=== PATIENT | female | born 1990 | race Two or more races ===

== ENCOUNTER 2024-09-30 12:50 | Inpatient (IN) | payer MEDICAID, OTHER ==
[~2024-09-30] VITALS: Ht 157.5 cm; Wt 89.5 kg
[2024-09-30 14:35] LABS: Urine Bacteria None Seen /hpf (None Seen)
--- NOTE | 2024-09-30 14:38 | ED.PDOC ---
Back pain HPI HPI Comments 34 y/o F, with no prior medical history presents to the ED for CC of back pain. Patient states, that she has been experiencing symptoms of acid reflex xdays with associated symptoms of back pain and supra pubic abdominal pain onset, today (09/30/24). Patient reports, that she had a gastric bypass surgery x1year ago and has since, developed symptoms of acid reflex. Patient denies flank pain, dysuria, diarrhea, or fever. No other symptoms or modifying factors present at this time. 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 Family History Family History: Unknown Social History Smoker: Non-Smoker Alcohol: Denies ETOH Use Drugs: Denies Drug Use Lives In: Home Constitutional: denies: chills, diaphoresis, fatigue, fever, malaise, sweats, weakness, others EENTM: denies: blurred vision, double vision, ear bleeding, ear discharge, ear drainage, ear pain, ear ringing, eye pain, eye redness, hearing loss, mouth pain, mouth swelling, nasal discharge, nose bleeding, nose congestion, nose pa in, photophobia, tearing, throat pain, throat swelling, voice changes, others Respiratory: denies: cough, hemoptysis, orthopnea, SOB at rest, shortness of breath, SOB with excertion, stridor, wheezing, others Cardiovascular: denies: chest pain, dizzy spells, diaphoresis, Dyspnea on exertion, edema, irregular heart beat, left arm pain, lightheadedness, palpitations, PND, syncope, others Gastrointestinal: reports: abdominal pain; denies: abdomen distended, blood streaked bowels, constipated, diarrhea, dysphagia, difficulty swallowing, hematemesis, melena, nausea, poor appetite, poor fluid intake, rectal bleeding, rectal pain, vomiting, others Genitourinary: denies: abnormal vagina bleeding, burning, dyspareunia, dysuria, flank pain, frequency, hematuria, incontinence, pain, , vagina discharge, urgency, others Neurological: denies: dizziness, fainting, headache, left sided numbness, left sided weakness, numbness, paresthesia, pre-existing deficit, right sided numbness, right sided weakness, seizure, speech problems, tingling, tremors, weakness, others Musculoskeletal: reports: back pain; denies: gout, joint pain, joint swelling, muscle pain, muscle stiffness, neck pain, others Integumetry: denies: bruises, change in color, change in hair/nails, dryness, laceration, lesions, lumps, rash, wounds, others Allergic/Immunocompromised: denies: Difficulty Healing, Frequent Infections, Hives, Itching, others Hematologic/Lymphatic: denies: anemia, blood clots, easy bleeding, easy bruising, swollen glands, others Endocrine: denies: excessive hunger, excessive sweating, excessive thirst, excessive urination, flushing, intolerance to cold, intolerance to heat, unexplained weight gain, unexplained weight loss, others Psychiatric: denies: anxiety, bipolar disorder, depression, hopeless, panic disorder, schizophrenia, sleepless, suicidal, others All Other Systems: Reviewed and Negative Physical Exam General Appearance: No Apparent Distress, Normal HEENT: Normal ENT Inspection, Pharynx Normal, TMs Normal Neck: Full Range of Motion, Non-Tender, Normal, Normal Inspection Respiratory: Chest Non-Tender, Lungs Clear, No Accessory Muscle Use, No Respiratory Distress, Normal Breath Sounds Cardiovascular: No Edema, No Murmur, No Gallop, Normal Peripheral Pulses, Regular Rate/Rhythm Breast Exam: Deferred Gastrointestinal: No Organomegaly, Non Tender, No Pulsatile Mass, Normal Bowel Sounds, Soft Genitalia: Deferred Pelvic: Deferred Rectal: Deferred Extremities: No calf tenderness, Normal capillary refill, Normal inspection, Normal range of motion, Non-tender, No pedal edema Musculoskeletal : Apperance: Normal Neurologic: Alert, rock worker II-XII nml as Tested, No Motor Deficits, Normal Affect, Normal Mood, No Sensory Deficits Cerebellar Function: Normal Reflexes: Normal Skin: Dry, Normal Color, Warm Lymphatic: No Adenopathy Was a procedure done? Was a procedure done?: No Back Pain Differential Dx Differential Diagnosis: Musculoskeletal Pain, Other (GERD, ULCER) X-Ray, Labs, Meds, VS Vital Signs Date Time Temp Pulse Resp B/P (MAP) Pulse Ox O2 Delivery O2 Flow Rate FiO2 09/30/24 13:30 98.2 101 20 103/72 (82) 98 98.2 Lab Test 09/30/24 14:42 09/30/24 13:32 Range/Units White Blood Count 9.8 4.4-10.8 10^3/uL Red Blood Count 4.33 4.0-5.20 10^6/uL Hemoglobin 11.4 L 12.2-16.2 g/dL Hematocrit 34.2 L 36.0-46.0 % Mean Corpuscular Volume 79.0 L 80.0-100.0 fL Mean Corpuscular Hemoglobin 26.3 L 28.0-32.0 pg Mean Corpuscular Hemoglobin Concent 33.2 32.0-36.0 g/dL Red Cell Distribution Width 16.8 H 11.8-14.3 % Platelet Count 293 140-450 10^3/uL Mean Platelet Volume 8.1 6.9-10.8 fL Neutrophils (%) (Auto) 88.3 H 37.0-80.0 % Lymphocytes (%) (Auto) 5.5 L 10.0-50.0 % Monocytes (%) (Auto) 5.4 0.0-12.0 % Eosinophils (%) (Auto) 0.4 0.0-7.0 % Basophils (%) (Auto) 0.4 0.0-2.0 % Neutrophils # (Auto) 8.7 H 1.6-8.6 10 ^3/uL Lymphocytes # (Auto) 0.5 0.4-5.4 10 ^3/uL Monocytes # (Auto) 0.5 0-1.3 10 ^3/uL Eosinophils # (Auto) 0 0-0.8 10 ^3/uL Basophils # (Auto) 0 0-0.2 10 ^3/uL Nucleated Red Blood Cells 0.0 % Sodium Level 141 136-145 mmol/L Potassium Level 4.5 3.5-5.1 mmol/L Chloride Level 109 H 98-107 mmol/L Carbon Dioxide Level 24 20-31 mmol/L Anion Gap 8 5-15 Blood Urea Nitrogen 6 L 9-23 mg/dL Creatinine 0.65 0.550-1.02 mg/dL Glomerular Filtration Rate Calc 118 >90 mL/min BUN/Creatinine Ratio 9.2 L 10.0-20.0 Serum Glucose 90 74-106 mg/dL Calcium Level 8.9 8.7-10.4 mg/dL Total Bilirubin 0.7 0.2-1.0 mg/dL Aspartate Amino Transferase (AST) 70 H 13-40 U/L Alanine Aminotransferase (ALT) 29 7-40 U/L Alkaline Phosphatase 94 46-116 U/L Total Protein 7.1 5.7-8.2 g/dL Albumin 4.5 3.2-4.8 g/dL Lipase 24 12-53 U/L Urine Color Yellow Yellow Urine Clarity Turbid H Clear Urine pH 8.0 5.0-9.0 Urine Specific [place] 1.020 1.001-1.035 Urine Protein Trace H Negative Urine Ketones Trace Negative Urine Blood Negative Negative /uL Urine Nitrite Negative Negative Urine Bilirubin Negative Negative Urine Urobilinogen Normal Negative mg/dL Urine Leukocyte Esterase Trace Negative /uL Urine RBC 1 0 - 4 /hpf Urine Microscopic WBC 1 0-5 /HPF Urine Squamous Epithelial Cells Mod <5 /hpf Urine Bacteria None seen None Seen /hpf Urine Mucus Few None Seen Urine Yeast (Budding) Occasional None Seen /hpf Urine Sperm Present None Seen /hpf Urine Glucose Normal Normal mg/dL Urine Test Negative Negative [place] [id number] Ph: [phone] DIAGNOSTIC IMAGING Diagnostic Imaging Report : [id number] Signed PATIENT: JYOTI SANCHEZ ACCT: [id number] UNIT: [id number] : 1990 LOC: ER ROOM / BED: / AGE / SEX: 34 / F ADM STATUS: REG ER SERVICE [id number] ORDERING PHYSICIAN: QIAN ALEXANDER MD PROCEDURE(s): CXRP - CHEST PORTABLE REASON: epigastric pain ORDER NUMBER(s): [id number], ACCESSION NUMBER(s): [id number] CHEST RADIOGRAPH Indication: epigastric pain Technique: Single frontal view of the chest was obtained COMPARISON: None FINDINGS: Lines and Tubes: None Lungs: Clear Pleura: No effusion. No pneumothorax. Cardiomediastinal contours: Unremarkable Bones: Unremarkable IMPRESSION: No acute disease. ATED BY: PRASANNA GRAHAM MD DICTATED DATE/TIME: 09/30/24 154 SIGNED BY: PRASANAN GRAHAM MD SIGNED DATE/TIME: 09/30/24 154 CC: Time of 1ST Reevaluation: 15:00 Reevaluation 1ST: Unchanged Patient Education/Counseling: Diagnosis, Treatment Family Education/Counseling: Diagnosis, Treatment Departure 1 Departure Time of Disposition: 16:50 (Patient presenting with epigastric pain concerning for gastritis. We will patient's labs and x-ray are benign. We will discharge patient home with outpatient follow up) Impression: Primary Impression: Gastritis Qualified Codes: K29.70 - Gastritis, unspecified, without bleeding Disposition: HOME / SELF CARE / HOMELESS Condition: Stable Additional Instructions: You likely have gastritis. You can take [id number] omeprazole 20 mg daily for 2 weeks. You should avoid spicy food, chocolate, caffeine, alcohol, dairy, onions, tomatoes. You were referred to gastroenterology. Please call for an appointment. If your symptoms worsen or you have any other concerns please return to the emergency room. Discharged With: Self Critical Care Note Critical Care Time?: No Stability Stability form required: No Heart Score Heart Score: Heart Score Response (Comments) Value History N/A 0 EKG N/A 0 Age N/A 0 Risk Factors N/A 0 Troponin N/A 0 Total 0 I personally scribed for QIAN ALEXANDER MD ([email or web address]) on 09/30/24 at 14:38. Electronically submitted by Yanely Howell ([email or web address]). I personally scribed for QIAN ALEXANDER MD ([email or web address]) on 09/30/24 at 16:47. E lectronically submitted by Yanely Howell ([email or web address]). QIAN ALEXANDER MD September 30, 2024 14:38
[2024-09-30 14:43] LABS: Urine Blood Negative /uL (Negative); Urine Budding Yeast OCCASIONAL /hpf (None Seen); Urine Clarity Turbid (Clear); Urine Color Yellow (Yellow); Urine Mucus FEW (None Seen); Urine Protein, UAD TRACE (Negative); Urine Sperm PRESENT /hpf (None Seen); Urine Squamous Epithelial Cell MOD /hpf (<5); Urine Urobilinogen Normal (Negative); Urine WBC 1 /HPF (0-5)
[2024-09-30 15:12] LABS: Alanine Aminotransferase 29 U/L (7-40); Albumin 4.5 g/dL (3.2-4.8); Alkaline Phosphatase 94 U/L (46-116); Anion Gap 8 (5-15); BUN/Creatinine Ratio 9.2 (10.0-20.0); Bilirubin, Total 0.7 mg/dL (0.2-1.0); Calcium 8.9 mg/dL (8.7-10.4); Carbon Dioxide 24 mmol/L (20-31); Glucose 90 mg/dL (74-106); Lipase 24 U/L (12-53); Potassium 4.5 mmol/L (3.5-5.1); Sodium 141 mmol/L (136-145); Total Protein 7.1 g/dL (5.7-8.2)
[2024-09-30 15:13] LABS: Aspartate Aminotransferase 70 U/L (13-40); Blood Urea Nitrogen 6 mg/dL (9-23); Chloride 109 mmol/L (98-107)
[2024-09-30 15:14] LABS: Basophils # (auto) 0 10 ^3/uL (0-0.2); Basophils % (auto) 0.4 % (0.0-2.0); Eosinophils # (auto) 0 10 ^3/uL (0-0.8); Eosinophils % (auto) 0.4 % (0.0-7.0); Hematocrit 34.2 % (36.0-46.0); Hemoglobin 11.4 g/dL (12.2-16.2); Lymphocytes # (auto) 0.5 10 ^3/uL (0.4-5.4); Lymphocytes % (auto) 5.5 % (10.0-50.0); Mean Corpuscular Hemoglobin 26.3 pg (28.0-32.0); Mean Corpuscular Hgb Conc. 33.2 g/dL (32.0-36.0); Monocytes # (auto) 0.5 10 ^3/uL (0-1.3); Monocytes % (auto) 5.4 % (0.0-12.0); Neutrophils # (auto) 8.7 10 ^3/uL (1.6-8.6); Neutrophils % (auto) 88.3 % (37.0-80.0); Platelet Count (auto) 293 10^3/uL (140-450); Red Blood Cells 4.33 10^6/uL (4.0-5.20); Red Cell Distribution Width 16.8 % (11.8-14.3); White Blood Cell 9.8 10^3/uL (4.4-10.8)
--- NOTE | 2024-09-30 15:42 | DVH ---
CHEST RADIOGRAPH Indication: epigastric pain Technique: Single frontal view of the chest was obtained COMPARISON: None FINDINGS: Lines and Tubes: None Lungs: Clear Pleura: No effusion. No pneumothorax. Cardiomediastinal contours: Unremarkable Bones: Unremarkable IMPRESSION: No acute disease.
[2024-09-30] MEDS: ONDANSETRON HCL 4 MG/2 ML VIAL IV ONE (17:03)
[2024-09-30] MEDS: PANTOPRAZOLE 40 MG/10 ML VIAL INJ IV ONE (17:03)
[2024-09-30] MEDS: SODIUM CHLORIDE 0.9% 1,000 ML IV ONE (17:03)
--- NOTE | 2024-09-30 17:28 | ED.PDOC ---
Departure 1 Departure Time of Disposition: 17:27 (Patient presented with chest pain that was concerning for possible STEMI, ACS, PE, Pneumonia, Muscle Strain, COPD, Dissection. Data: 1. I ordered and reviewed the result of at least 3 labs including a CBC, BMP, and Troponin. 2. I independently interpreted the following tests: EKG which shows sinus tachycardia _ and Chest X-ray which shows benign chest.Risk:This patient has a high risk of morbidity due to further diagnostic testing or treatment and may suffer from an acute cardiac or respiratory disorder. Workup reveals concern for ACS and patient should be admitted for further workup and possible expert consultation. ) Impression: Primary Impression: Acute chest pain Disposition: ADMITTED INPATIENT Admit to: Med Surg Condition: Serious Discharged With: Self Critical Care Note Critical Care Time?: Yes Critical care comment: Acute chest pain Authorized and Performed by: Qian Carlisle MD Total critical care time: Approximately 38 minutes Due to a high probability of clinically significant, life threatening deterioration, the patient required my highest level of preparedness to intervene emergently and I personally spent this critical care time directly and personally managing the patient. This critical care time included obtaining a history; examining the patient; pulse oximetry; ordering and review of studies; arranging urgent treatment with development of a management plan; evaluation of patient's response to treatment; frequent reassessment; and, discussions with o ther providers. This critical care time was performed to assess and manage the high probability of imminent, life-threatening deterioration that could result in multi-organ failure. It was exclusive of separately billable procedures and treating other patients and teaching time. Please see my other sections and the rest of the note for further information on patient assessment and treatment. Heart Score Heart Score: Heart Score Response (Comments) Value History Moderate Suspicious 1 EKG Repolarization Disturb 1 Age <45 0 Risk Factors 1 or 2 risk factors 1 Troponin 1-2 x's Normal limit 1 Total 4 QIAN CARLISLE MD September 30, 2024 17:28
--- NOTE | 2024-09-30 17:36 | DVHHP2 ---
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 The symptoms began two days ago and significantly worsened around 10:00 AM today. She also reports chest wall discomfort described as pressure, without associated cough, fever, hematuria, melena, or dysuria. She denies any known inciting factors, and nothing improves or worsens the symptoms.In the ED, she received IV protonix, Zofran, and normal saline with partial relief. Laboratory evaluation showed hemoglobin 11.4 / hematocrit 34.2, AST mildly elevated at 70, but otherwise CBC, CMP, UA, and chest X-ray were unremarkable. Given persistent symptoms and abnormal LFTs, she will be admitted for further evaluation, IV hydration, and pain management. Past Medical History see hpi above Past Surgical History see hpi above Family History Reviewed, non-contributory to the management of this case. Past Social History The patient lives at home, denies smoking, alcohol or illicit drugs abuse. Review of Systems Constitutional: No: Fever, Chills, Sweats, Weakness, Malaise, Other Eyes: No: Pain, Vision change, Conjunctivae inflammation, Eyelid inflammation, Other, Redness ENT: No: Ear pain, Ear discharge, Nose pain, Nose discharge, Nose congestion, Mouth pain, Mouth swelling, Throat pain, Throat swelling, Other Respiratory: No: Cough, Dry, Shortness of breath, SOB with excertion, Wheezing, Hemoptysis, Pleuritic Pain, Sputum, Wheezing, Other Cardiovascular: No: Chest Pain, Palpitations, Orthopnea, Paroxysmal Noc. Dyspnea, Edema, Lt Headedness, Other Gastrointestinal: Abdominal Pain; No: Nausea, Vomiting, Diarrhea, Constipation, Melena, Hematochezia, Other Genitourinary: No Dysuria, No Frequency, No Incontinence, No Hematuria, No Retention, No Other Musculoskeletal: No: other, neck pain, shoulder pain, arm pain, back pain, hand pain, leg pain, foot pain Skin: No: Rash, Lesions, Jaundice, Bruising, Other Neurological: No: Weakness, Numbness, Incoordination, Change in speech, Confusion, Seizures, Other Allergies: Coded Allergies: Latex (Verified Allergy, Unknown, 09/30/24) Exam Vital Signs Vital Signs Date Time Temp Pulse Resp B/P (MAP) Pulse Ox O2 Delivery O2 Flow Rate FiO2 09/30/24 17:28 71 15 125/67 (86) 99 09/30/24 13:30 98.2 98.2 General Appearance: Alert, Oriented X3, Cooperative, No acute distress HEENT: Atraumatic, PERRLA, EOMI, Mucous membr. moist/pink Respiratory: Clear to auscultation, Normal air movement Cardiovascular: Regular rate, Normal S1, Normal S2, No murmurs Abdominal: Normal bowel sounds, Soft, No tenderness, No hepatospenomegaly Extremities: No clubbing, No cyanosis, No edema, Normal pulses, No tenderness/swelling Skin: No rashes, No breakdown, No significant lesion Neuro: Normal gait, Normal speech, Strength at 5/5 X4 ext, Normal tone, Sensation intact, Cranial nerves 3-12 NL Psych/Mental Status: Mental status NL, Mood NL Labs/Xrays I reviewed labs, imaging CT scan abdomen pelvis, EKG and all diagnostic studies on this patient from ED records and the medical chart cxr normal Labs Test 09/30/24 14:42 09/30/24 13:32 Range/Units White Blood Count 9.8 4.4-10.8 10^3/uL Red Blood Count 4.33 4.0-5.20 10^6/uL Hemoglobin 11.4 L 12.2-16.2 g/dL Hematocrit 34.2 L 36.0-46.0 % Mean Corpuscular Volume 79.0 L 80.0-100.0 fL Mean Corpuscular Hemoglobin 26.3 L 28.0-32.0 pg Mean Corpuscular Hemoglobin Concent 33.2 32.0-36.0 g/dL Red Cell Distribution Width 16.8 H 11.8-14.3 % Platelet Count 293 140-450 10^3/uL Mean Platelet Volume 8.1 6.9-10.8 fL Neutrophils (%) (Auto) 88.3 H 37.0-80.0 % Lymphocytes (%) (Auto) 5.5 L 10.0-50.0 % Monocytes (%) (Auto) 5.4 0.0-12.0 % Eosinophils (%) (Auto) 0.4 0.0-7.0 % Basophils (%) (Auto) 0.4 0.0-2.0 % Neutrophils # (Auto) 8.7 H 1.6-8.6 10 ^3/uL Lymphocytes # (Auto) 0.5 0.4-5.4 10 ^3/uL Monocytes # (Auto) 0.5 0-1.3 10 ^3/uL Eosinophils # (Auto) 0 0-0.8 10 ^3/uL Basophils # (Auto) 0 0-0.2 10 ^3/uL Nucleated Red Blood Cells 0.0 % Sodium Level 141 136-145 mmol/L Potassium Level 4.5 3.5-5.1 mmol/L Chloride Level 109 H 98-107 mmol/L Carbon Dioxide Level 24 20-31 mmol/L Anion Gap 8 5-15 Blood Urea Nitrogen 6 L 9-23 mg/dL Creatinine 0.65 0.550-1.02 mg/dL Glomerular Filtration Rate Calc 118 >90 mL/min BUN/Creatinine Ratio 9.2 L 10.0-20.0 Serum Glucose 90 74-106 mg/dL Calcium Level 8.9 8.7-10.4 mg/dL Total Bilirubin 0.7 0.2-1.0 mg/dL Aspartate Amino Transferase (AST) 70 H 13-40 U/L Alanine Aminotransferase (ALT) 29 7-40 U/L Alkaline Phosphatase 94 46-116 U/L Total Protein 7.1 5.7-8.2 g/dL Albumin 4.5 3.2-4.8 g/dL Lipase 24 12-53 U/L Urine Color Yellow Yellow Urine Clarity Turbid H Clear Urine pH 8.0 5.0-9.0 Urine Specific [place] 1.020 1.001-1.035 Urine Protein Trace H Negative Urine Ketones Trace Negative Urine Blood Negative Negative /uL Urine Nitrite Negative Negative Urine Bilirubin Negative Negative Urine Urobilinogen Normal Negative mg/dL Urine Leukocyte Esterase Trace Negative /uL Urine RBC 1 0 - 4 /hpf Urine Microscopic WBC 1 0-5 /HPF Urine Squamous Epithelial Cells Mod <5 /hpf Urine Bacteria None seen None Seen /hpf Urine Mucus Few None Seen Urine Yeast (Budding) Occasional None Seen /hpf Urine Sperm Present None Seen /hpf Urine Glucose Normal Normal mg/dL Urine Test Negative Negative Assessment/Plan Assessment/Plan 34-year-old female with prior bariatric surgery and recent-onset abdominal and chest wall pain, likely musculoskeletal vs. mild gastritis vs. functional abdominal pain. acute Abdominal Pain Crampy pain across lower abdomen and back No focal peritoneal signs Imaging and labs unremarkable except for mild AST elevation Plan: Admit to surgical obs unit for monitoring IV fluids at 75 mL/hr Continue IV pain control GI prophylaxis with protonix Abdominal exam q4h Monitor for changes or progression Consider abdominal ultrasound if symptoms persist acute Chest Wall Pain (Non-cardiac chest pain) Described as pressure-like No respiratory or cardiac symptoms Chest X-ray normal, no history of CAD Plan: Likely musculoskeletal or referred from abdominal discomfort Monitor vitals and reassess Continue supportive care acute Dehydration Ongoing nausea, mild hemoconcentration Plan: Continue IV fluids Monitor electrolytes Advance diet as tolerated FEN / PROPHYLAXIS (PPx) Fluids/Electrolytes/Nutrition IV NS at 75 mL/hr Clear liquid diet, advance as tolerated DVT Prophylaxis SCDs/No pharmacologic prophylaxis unless prolonged immobility GI Prophylaxis Pantoprazole 40 mg IV daily DISPOSITION Admit to surgical obs unit for IV hydration, pain control, and continued evalu ation of abdominal and chest wall discomfort. Monitor LFTs and reassess for further diagnostic imaging based on progression. Plan discussed with: Patient Date of Service: September 30, 2024 Billing Provider: MAIK BRIZUELA DNP Common Visit Codes: [id number] INP/OBS CARE (HIGH) MAIK BRIZUELA DNP September 30, 2024 17:36
[2024-09-30] MEDS: HYDROcodone-ACET 5/325MG TAB PO ONE (18:04)
[2024-09-30] MEDS: SODIUM CHLORIDE 0.9% 1,000 ML IV SCH (18:30)
[2024-09-30] MEDS ORDERED: ONDANSETRON HCL 4 MG/2 ML VIAL IV PRN (18:30)
[2024-09-30] MEDS ORDERED: DOCUSATE SOD 100 MG CAP PO PRN (18:30)
[2024-09-30] MEDS ORDERED: NITROGLYCERIN 0.4 MG SL TAB SL PRN (18:30)
--- NOTE | 2024-09-30 19:35 | DVH ---
Exam: CT CT AB PEL WO CON-NO ORAL OR IV History: eval for abd pain and lower back Comparison Study: NoneNone available at time of dictation. TECHNIQUE: Multidetector CT of the abdomen and pelvis without IV contrast. Axial, coronal and sagitta l multiplanar reformats were obtained from the axial data set by the technologist. Radiation Dose Information: CT Dose: CTDI volume is 16.83 mGy. Dose-length product is 869.82 mGy*cm FINDINGS: The lung bases are clear. Partially visualized heart is normal in size. Trace pericardial effusion. Mild hepatomegaly. Otherwise, liver, spleen, and adrenal glands are unremarkable. Sludge within the gallbladder. There is fat stranding adjacent to the pancreatic head. Kidneys, ureters and urinary bladder are unremarkable. Uterus and adnexa are unremarkable. Postsurgical changes of the stomach. Small bowel loops are unremarkable. Appendix is unremarkable. M ild wall thickening of the ascending colon. Small to moderate amount of fecal material within the rem ainder of the colon. No evidence of intraperitoneal free air or free fluid. No evidence of aortic aneurysm. No significant lymphadenopathy. Minimal body wall edema. No destructive osseous lesions are noted. Sclerotic focus over the right fem oral head and right sacral ala which may represent bone islands with blastic lesions not excluded. No destructive osseous lesions are noted. IMPRESSION: Mild fat stranding adjacent to the pancreatic head. Recommend correlation with lipase.Mild wall thic kening of the ascending colon. Correlate for mild colitis. Sludge within the gallbladder with no CT evidence for acute cholecystitis.
[2024-09-30 20:53] VITALS: PULSE 86; RESP 19; O2SAT 97
[2024-09-30 21:46] VITALS: BP 119/79; PULSE 91; RESP 19; TEMP 97.5; O2SAT 100
[2024-09-30] MEDS ORDERED: HYDR1TAB97 PO (21:53)
[2024-09-30] MEDS ORDERED: LIDO1PAD55 TOP (21:53)
[2024-09-30] MEDS ORDERED: LIDO1KIT21 (21:53)
[2024-09-30] MEDS ORDERED: TIRZ5INJ2 SC (21:54)
[2024-09-30] MEDS ORDERED: TRIO1TP TOP (22:05)
[2024-09-30] MEDS ORDERED: NYS15PW TOP (22:06)
[2024-09-30] MEDS: DICYCLOMINE HCL 10 MG CAP PO SCH (22:18)
[2024-09-30 23:12] VITALS: PULSE 91; RESP 19; O2SAT 100
[2024-10-01] VITALS (7 sets, daily range): BP systolic 90–136; BP diastolic 60–76; PULSE 58–73; RESP 16–20; TEMP 97.1–98; O2SAT 95–100
[2024-10-01] MEDS: MORPHINE SULFATE INJ 2 MG/ml SYRG IV PRN (00:01)
[2024-10-01] MEDS: SODIUM CHLORIDE 0.9% 500 ML IV ONE (00:01)
[2024-10-01 07:44] LABS: Basophils # (auto) 0 10 ^3/uL (0-0.2); Eosinophils # (auto) 0.2 10 ^3/uL (0-0.8); Hemoglobin 9.8 g/dL (12.2-16.2); Lymphocytes # (auto) 1.2 10 ^3/uL (0.4-5.4); Monocytes # (auto) 0.4 10 ^3/uL (0-1.3); Red Cell Distribution Width 16.8 % (11.8-14.3); White Blood Cell 4.2 10^3/uL (4.4-10.8)
[2024-10-01 07:47] LABS: Basophils % (auto) 0.7 % (0.0-2.0); Hematocrit 30.2 % (36.0-46.0); Lymphocytes % (auto) 28.8 % (10.0-50.0); Mean Corpuscular Hemoglobin 25.9 pg (28.0-32.0); Mean Corpuscular Hgb Conc. 32.6 g/dL (32.0-36.0); Mean Corpuscular Volume 79.3 fL (80.0-100.0); Monocytes % (auto) 8.4 % (0.0-12.0); Neutrophils # (auto) 2.4 10 ^3/uL (1.6-8.6); Neutrophils % (auto) 58.1 % (37.0-80.0); Nucleated Red Blood Cells % 0.1 %; Platelet Count (auto) 248 10^3/uL (140-450)
[2024-10-01 07:56] LABS: Anion Gap 5 (5-15); BUN/Creatinine Ratio 10.3 (10.0-20.0); Carbon Dioxide 28 mmol/L (20-31); Glucose 87 mg/dL (74-106); Potassium 4.4 mmol/L (3.5-5.1); Sodium 142 mmol/L (136-145); Total Protein 5.9 g/dL (5.7-8.2)
[2024-10-01 07:57] LABS: Albumin 3.8 g/dL (3.2-4.8)
[2024-10-01 08:07] LABS: Alanine Aminotransferase 52 U/L (7-40); Alkaline Phosphatase 116 U/L (46-116); Aspartate Aminotransferase 68 U/L (13-40); Blood Urea Nitrogen 7 mg/dL (9-23); Calcium 8.7 mg/dL (8.7-10.4); Chloride 109 mmol/L (98-107)
[2024-10-01 11:34] LABS: Triglycerides 68 mg/dL (< 150)
[2024-10-01 11:35] LABS: % Iron Saturation 15.7 % (15-50); LDL Cholesterol 33 mg/dL (< 100)
[2024-10-01 11:36] LABS: Cholesterol 105 mg/dL (< 200); HDL Cholesterol 54 mg/dL (40-59)
[2024-10-01] MEDS: PANTOPRAZOLE 40 MG TAB PO ONE (11:41)
[2024-10-01] MEDS: LACTATED RINGER'S 1,000 ML IV ONE (11:42)
--- NOTE | 2024-10-01 18:11 | DVHPNRES ---
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 The symptoms began two days ago and significantly worsened around 10:00 AM today. She also reports chest wall discomfort described as pressure, without associated cough, fever, hematuria, melena, or dysuria. She denies any known inciting factors, and nothing improves or worsens the symptoms. Past medical history: Obesity status post gastric sleeve surgery 1 year ago Past surgical history: Gastric sleeve surgery, Social history: Patient was with family and denies smoking, alcohol, drug use Medications: Lidocaine patch, tirzepatide weekly Review of systems Patient seen and examined at the bedside Reports her abdominal pain has improved but she will complains of back pain Denies fecal or urinary incontinence, no radiation of back pain into the legs, no trauma to the back Denies nausea, vomiting and is tolerating clear liquid diet well Objective vital signs Vital Sign Date Time Temp Pulse Resp B/P (MAP) Pulse Ox O2 Delivery O2 Flow Rate FiO2 10/01/24 17:15 98.0 68 20 104/61 (75) 97 98.0 10/01/24 08:00 Room Air* 0 21 Total Intake and Output 09/30/24 09/30/24 10/01/24 15:00 23:00 07:00 Intake Total 340 ml Balance 340 ml medications Current Medications Medications Dose Ordered Sig/Janny Route Start Time Stop Time Status Last Admin Dose Admin Ondansetron HCl 4 mg Q4HP PRN IV 09/30/24 18:30 Morphine Sulfate 2 mg Q4HPRN PRN IV 09/30/24 18:30 10/01/24 15:48 2 MG Pantoprazole Sodium 40 mg DAILY@0600 PO 10/02/24 06:00 Examination Constitutional: Patient was alert and oriented to time, place and person does not appear to be in any acute distress Gen - no pallor, no icterus, no cyanosis, no clubbing, no LAD, no edema . Skin - Patients skin is warm and dry.. HEENT - normocephalic, atraumatic, moist mucous membranes. Neck - full ROM, no LAD, no JVD Pulmonary - B/L vesicular breath sounds. no crackles , no wheezing, no stridor. cardiovascular - normal S1,S2 heard. no murmurs heard. GI - soft abdomen with tenderness to palpation in the epigastrium in the upper quadrants . no hepatospleenomegaly. Bowel sounds normoactive Musculoskeletal: Straight leg raise negative, no midline back tenderness Neurological - Patient is A/O X 3 . Bilateral upper extremity strength 5/5, bilateral lower extremity strength 5/5, no facial droop, normal speech, no tremor, no sensory deficiets. laboratory and microbiology Laboratory Tests 10/01/24 06:45 Test 10/01/24 06:45 Range/Units Serum Glucose 87 74-106 mg/dL Problem List/Assessment/Plan Problem List/Assessment/Plan Acute intractable abdominal pain Possible acute pancreatitis possibly drug induced ? Acute gastritis Acute cholecystitis less likely - CT shows fat stranding along the head of the pancreas - epigastric abdominal pain radiating to the back - IV fluids - tolerating clear liquid diet - pain management with morphine - Protonix Acute on chronic lower back pain - pain management Microcytic hypochromic anemia likely iron-deficiency S/p gastric sleeve surgery - low ferritin and iron - monitor CBC PUD prophylaxis: Protonix Goals of care discussed with the patient for over 23 minutes. Full code Plan discussed with Dr. Serna Plan discussed with: Patient, Other My Orders My Orders Orders - GLENIS HOPPER Procedure Category Date Status Time Lactated Ringer's PHA 10/01/24 In Process 11:15 Pantoprazole Tablet PHA 10/02/24 In Process (Protonix Tablet) 06:00 Date of Service: October 01, 2024 Billing Provider: TALAT SERNA MD Common Visit Codes: [id number] INP/OBS CARE(HIGH) GLENIS HOPPER RESIDENT October 01, 2024 18:11 TALAT SERNA MD October 04, 2024 15:28
[2024-10-01 21:23] LABS: Urine Amorphous Crystal FEW /hpf (None Seen); Urine Bacteria FEW /hpf (None Seen); Urine Blood Negative /uL (Negative); Urine Clarity Turbid (Clear); Urine Color Colorless (Yellow); Urine Protein, UAD Negative (Negative); Urine Specific Gravity 1.003 (1.001-1.035); Urine Squamous Epithelial Cell FEW /hpf (<5); Urine Urobilinogen Normal (Negative); Urine WBC 1 /HPF (0-5); Urine pH 5.5 (5.0-9.0)
[2024-10-01] MEDS: CLOTRIMAZOLE 1 % CREAM 15GM TOP SCH (23:52)
[2024-10-02] VITALS (8 sets, daily range): BP systolic 96–135; BP diastolic 64–81; PULSE 62–86; RESP 16–20; TEMP 97.7–98.6; O2SAT 96–100
[2024-10-02 05:50] LABS: Basophils # (auto) 0 10 ^3/uL (0-0.2); Basophils % (auto) 0.6 % (0.0-2.0); Eosinophils # (auto) 0.1 10 ^3/uL (0-0.8); Hemoglobin 9.4 g/dL (12.2-16.2); Lymphocytes # (auto) 1.5 10 ^3/uL (0.4-5.4); Monocytes # (auto) 0.4 10 ^3/uL (0-1.3)
[2024-10-02 05:52] LABS: Eosinophils % (auto) 3.1 % (0.0-7.0); Hematocrit 28.9 % (36.0-46.0); Lymphocytes % (auto) 33.7 % (10.0-50.0); Mean Corpuscular Hemoglobin 25.8 pg (28.0-32.0); Mean Corpuscular Hgb Conc. 32.5 g/dL (32.0-36.0); Mean Corpuscular Volume 79.3 fL (80.0-100.0); Monocytes % (auto) 9.2 % (0.0-12.0); Neutrophils # (auto) 2.4 10 ^3/uL (1.6-8.6); Neutrophils % (auto) 53.4 % (37.0-80.0); Platelet Count (auto) 236 10^3/uL (140-450); Red Blood Cells 3.65 10^6/uL (4.0-5.20); Red Cell Distribution Width 16.9 % (11.8-14.3); White Blood Cell 4.4 10^3/uL (4.4-10.8)
[2024-10-02 05:53] LABS: Anion Gap 7 (5-15); Carbon Dioxide 29 mmol/L (20-31); Chloride 106 mmol/L (98-107); Sodium 142 mmol/L (136-145)
[2024-10-02 05:55] LABS: Calcium 9.3 mg/dL (8.7-10.4)
[2024-10-02 05:59] LABS: BUN/Creatinine Ratio 6.7 (10.0-20.0)
[2024-10-02] MEDS: PANTOPRAZOLE 40 MG TAB PO SCH (06:22)
[2024-10-02 06:32] LABS: Blood Urea Nitrogen 5 mg/dL (9-23); Glucose 107 mg/dL (74-106)
[2024-10-02] MEDS: CYANOCOBALAMIN (B-12) 1000 MCG/1 ML VIAL IM ONE (08:52)
--- NOTE | 2024-10-02 11:16 | DVH ---
EXAM: CT THORACIC SPINE WO CONTRAS INDICATION: back pain COMPARISON: None TECHNIQUE: Multiple axial CT images of the thoracic spine were obtained using bone algorithm. Axial and coronal reformatting was done. Bone and soft tissue windows were reviewed. Radiation Dose Information: CT Dose: CTDI volume is 28.62 mGy. Dose-length product is 1074.69 mGy*cm FINDINGS: No CT evidence of acute fracture or traumatic mal-alignment. The visualized paraspinal soft tissues a re grossly unremarkable. The disc spaces are relatively preserved. There is multilevel degenerative change of the spine, with disc space narrowing, subchondral sclerosis, and marginal osteophyte formation. IMPRESSION: No CT evidence of acute fracture or traumatic mal-alignment of the bony thoracic spine. Radiation optimization: All CT scans at this facility use at least one of these dose optimization amber hniques: automated exposure control mA and/or kV adjustment per patient size (includes targeted exam s where dose is matched to clinical indication) or iterative reconstruction.
--- NOTE | 2024-10-02 12:22 | DVH ---
Indication: mid to low Back pain Technique: CT axial images of the lumbar spine are obtained without contrast. Coronal and sagittal re formats were obtained. Radiation Dose Information: CTDI volume is 32.7 mGy. Dose-length product is 1220.04 mGy*cm Comparison: None FINDINGS: Lumbar vertebral body heights are maintained. Alignment maintained. Mild multilevel disc space narr owing. Facet articulations intact. Mild bilateral sacroiliac degenerative joint disease. Tiny bilateral pleural effusions. Postsurgical changes stomach. IMPRESSION: 1. Mild lumbar degenerative disc disease. 2. Tiny bilateral pleural effusions.
[2024-10-02] MEDS: MORPHINE SULFATE INJ 2 MG/ml SYRG IV ONE (16:16)
[2024-10-02 16:34] LABS: Basophils # (auto) 0 10 ^3/uL (0-0.2); Eosinophils # (auto) 0 10 ^3/uL (0-0.8); Eosinophils % (auto) 1.1 % (0.0-7.0); Hemoglobin 10.4 g/dL (12.2-16.2); Lymphocytes # (auto) 0.8 10 ^3/uL (0.4-5.4); Lymphocytes % (auto) 17.6 % (10.0-50.0); Monocytes # (auto) 0.3 10 ^3/uL (0-1.3); Monocytes % (auto) 6.5 % (0.0-12.0); Neutrophils # (auto) 3.3 10 ^3/uL (1.6-8.6); White Blood Cell 4.4 10^3/uL (4.4-10.8)
[2024-10-02 16:36] LABS: Basophils % (auto) 0.6 % (0.0-2.0); Hematocrit 31.9 % (36.0-46.0); Mean Corpuscular Hemoglobin 25.8 pg (28.0-32.0); Mean Corpuscular Hgb Conc. 32.5 g/dL (32.0-36.0); Mean Corpuscular Volume 79.5 fL (80.0-100.0); Neutrophils % (auto) 74.2 % (37.0-80.0); Platelet Count (auto) 299 10^3/uL (140-450); Red Blood Cells 4.01 10^6/uL (4.0-5.20); Red Cell Distribution Width 16.5 % (11.8-14.3)
[2024-10-02 16:44] LABS: Potassium 4.9 mmol/L (3.5-5.1); Sodium 143 mmol/L (136-145)
[2024-10-02 16:45] LABS: Anion Gap 7 (5-15); Calcium 9.7 mg/dL (8.7-10.4); Carbon Dioxide 29 mmol/L (20-31)
[2024-10-02 16:52] LABS: Chloride 107 mmol/L (98-107); Glucose 111 mg/dL (74-106)
[2024-10-02 16:53] LABS: Blood Urea Nitrogen 9 mg/dL (9-23)
[2024-10-02] MEDS: POLYETHYLENE GLYCOL 17 GM PWDR PO ONE ×2 (17:37→21:58)
--- NOTE | 2024-10-02 17:57 | DVHPNRES ---
Progress Note Date Seen: October 02, 2024 Resident Creating Document: GLENIS HOPPER RESIDENT Medical Necessity Reason Pt with a Central, PICC or Fol: No Subjective Review of Systems Patient seen and examined at the bedside Reports her abdominal pain has improved but and the diet was advanced to regular patient had pain after eating, changed to full liquid diet for the dinner Patient continued to have back pain following which a lumbar and thoracic spine CT was done Denies nausea, vomiting Objective vital signs Vital Sign Date Time Temp Pulse Resp B/P (MAP) Pulse Ox O2 Delivery O2 Flow Rate FiO2 10/02/24 17:00 98.4 78 17 117/75 (89) 100 98.4 10/02/24 08:00 Room Air* 0 21 Total Intake and Output 10/01/24 10/01/24 10/02/24 15:00 23:00 07:00 Intake Total 2450 ml 1200 ml Balance 2450 ml 1200 ml medications Current Medications Medications Dose Ordered Sig/Janny Route Start Time Stop Time Status Last Admin Dose Admin Ondansetron HCl 4 mg Q4HP PRN IV 09/30/24 18:30 Morphine Sulfate 2 mg Q4HPRN PRN IV 09/30/24 18:30 10/02/24 15:09 2 MG Pantoprazole Sodium 40 mg DAILY@0600 PO 10/02/24 06:00 10/02/24 06:22 40 MG Clotrimazole 1 applic Q12HR TOP 10/01/24 23:30 10/02/24 10:28 1 APPLIC Examination Constitutional: Patient was alert and oriented to time, place and person does not appear to be in any acute distress Gen - no pallor, no icterus, no cyanosis, no clubbing, no LAD, no edema . Skin - Patients skin is warm and dry.. HEENT - normocephalic, atraumatic, moist mucous membranes. Neck - full ROM, no LAD, no JVD Pulmonary - B/L vesicular breath sounds. no crackles , no wheezing, no stridor. cardiovascular - normal S1,S2 heard. no murmurs heard. GI - soft abdomen with tenderness to palpation in the epigastrium in the upper quadrants . no hepatospleenomegaly. Bowel sounds normoactive Musculoskeletal: Straight leg raise negative, no midline back tenderness Neurological - Patient is A/O X 3 . Bilateral upper extremity strength 5/5, bilateral lower extremity strength 5/5, no facial droop, normal speech, no tremor, no sensory deficiets. laboratory and microbiology Laboratory Tests 10/02/24 16:10 Test 10/02/24 16:10 Range/Units Serum Glucose 111 H 74-106 mg/dL Problem List/Assessment/Plan Problem List/Assessment/Plan Acute intractable abdominal pain Possible acute pancreatitis possibly drug induced ? Acute gastritis Acute cholecystitis less likely - CT shows fat stranding along the head of the pancreas - IV fluids - tolerating full liquid diet - pain management with morphine - Protonix Acute on chronic lower back pain - thoracic spine CT showed no evidence of fracture or traumatic malalignment - lumbar spine CT showed mild lumbar degenerative disc disease - pain management Microcytic hypochromic anemia likely iron-deficiency S/p gastric sleeve surgery - low ferritin and iron - monitor CBC - reported of constipation, not started on ferrous sulfate PUD prophylaxis: Protonix Goals of care discussed with the patient for over 26 minutes. Full code Plan discussed with Dr. Serna Plan discussed with: Patient My Orders My Orders Orders - GLENIS HOPPER RESIDENT Procedure Category Date Status Time Ls Spine Wo Contrast CT 10/02/24 Resulted 09:[address] 10/02/24 Resulted Contras 09:29 Full Liq Diet DIET 10/02/24 Transmitted Dinner Dietary Evaluation Review Comments: 1. Continue Regular diet as tolerated 2. Recommend small/frequent meals to meet energy needs 3. Given hx of gastric sleeve, recommend standard daily MVI (bariatric version not available at [facility]), ferrous sulfate 200 mg daily, calcium citrate 600 mg BID, Vit D 3000 IU daily, B12 350 mcg daily 4. Monitor GI sx, appears to have improved Expected Outcomes/Goals: Adequate energy/micronutrient intake given hx of gastric sleeve. Date of Service: October 02, 2024 Billing Provider: TALAT SERNA MD Common Visit Codes: [id number] INP/OBS CARE(HIGH) GLENIS HOPPER RESIDENT October 02, 2024 17:57 TALAT SERNA MD October 04, 2024 15:40
[2024-10-02] MEDS: HYDROcodone-ACET 5/325MG TAB PO ONE (21:58)
[2024-10-03] VITALS (8 sets, daily range): BP systolic 101–125; BP diastolic 51–77; PULSE 65–80; RESP 17–18; TEMP 97.9–98.6; O2SAT 94–100
[2024-10-03 05:36] LABS: Eosinophils # (auto) 0.1 10 ^3/uL (0-0.8); Eosinophils % (auto) 0.9 % (0.0-7.0); Lymphocytes # (auto) 1.3 10 ^3/uL (0.4-5.4); Mean Corpuscular Hgb Conc. 32.6 g/dL (32.0-36.0); White Blood Cell 6.2 10^3/uL (4.4-10.8)
[2024-10-03 05:40] LABS: Basophils # (auto) 0 10 ^3/uL (0-0.2); Basophils % (auto) 0.7 % (0.0-2.0); Hemoglobin 9.8 g/dL (12.2-16.2); Lymphocytes % (auto) 20.7 % (10.0-50.0); Mean Corpuscular Hemoglobin 26.3 pg (28.0-32.0); Mean Corpuscular Volume 80.5 fL (80.0-100.0); Monocytes # (auto) 0.5 10 ^3/uL (0-1.3); Monocytes % (auto) 7.9 % (0.0-12.0); Neutrophils # (auto) 4.4 10 ^3/uL (1.6-8.6); Neutrophils % (auto) 69.8 % (37.0-80.0); Nucleated Red Blood Cells % 0.1 %; Platelet Count (auto) 252 10^3/uL (140-450); Red Blood Cells 3.72 10^6/uL (4.0-5.20); Red Cell Distribution Width 17.1 % (11.8-14.3)
[2024-10-03 05:59] LABS: Anion Gap 7 (5-15); Carbon Dioxide 27 mmol/L (20-31); Chloride 106 mmol/L (98-107); Potassium 4.4 mmol/L (3.5-5.1); Sodium 140 mmol/L (136-145)
[2024-10-03 06:05] LABS: BUN/Creatinine Ratio 10.1 (10.0-20.0); Glucose 99 mg/dL (74-106)
[2024-10-03 06:15] LABS: Blood Urea Nitrogen 7 mg/dL (9-23); Calcium 8.6 mg/dL (8.7-10.4)
[2024-10-03] MEDS: SENNA 8.6 MG TAB PO ONE (09:00)
[2024-10-03] MEDS: POLYETHYLENE GLYCOL 17 GM PWDR PO ONE (09:00)
[2024-10-03] MEDS: METOCLOPRAMIDE HCL 5MG/ml INJ 2ml VIAL IV ONE (17:15)
--- NOTE | 2024-10-03 17:30 | DVHPN2 ---
Subjective 10/[address] young. 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 Patient was weak pain complaints paraspinal and pinpoint spinal. But no red flag symptoms. Bowel sounds present, cardiovascular lung exam without any significant findings. Patient is hyper focused on ureaplasma, which was apparently treated prior by gabi by PCP. Currently we will focus on constipation and we will send cultures for ureaplasma, GC, and trial baclofen muscle relaxant, repeat UA U culture,, possible PID? . Reviewed: H&P Changes from previous H/P or p: No Changes General: Per HPI Eyes: No Pain, No Vision change, No Conjunctivae inflammation, No Eyelid inflammation, No Other, No Redness ENT: No Ear pain, No Ear discharge, No Nose pain, No Nose discharge, No Nose congestion, No Mouth pain, No Mouth swelling, No Throat pain, No Throat swelling, No Other Cardiovascular: No Chest Pain, No Palpitations, No Orthopnea, No Paroxysmal Noc. Dyspnea, No Edema, No Lt Headedness, No Other Respiratory: No Cough, No Dry, No Shortness of breath, No SOB with excertion, No Wheezing, No Hemoptysis, No Pleuritic Pain, No Sputum, No Other Gastrointestinal: No Nausea, No Vomiting; Abdominal Pain; No Diarrhea, No Constipation, No Melena, No Hematochezia, No Other Genitourinary: No Dysuria, No Frequency, No Incontinence, No Hematuria, No Retention, No Other Musculoskeletal: No other, No neck pain, No shoulder pain, No arm pain, No back pain, No hand pain, No leg pain, No foot pain Skin: No Rash, No Lesions, No Jaundice, No Bruising, No Other Objective Vitals Vital Signs Date Time Temp Pulse Resp B/P (MAP) Pulse Ox O2 Delivery O2 Flow Rate FiO2 10/03/24 13:00 98.6 71 18 124/72 (89) 98 98.6 10/03/24 08:00 Room Air* 0 21 Intake/Output Intake and Output 10/03/24 07:00 Intake Total 1580 ml Balance 1580 ml Intake Oral 1580 ml # Voids 9 Exam GEN: Healthy appearing, well-developed, NAD. HEENT: NC/AT; MMM. CV: RRR, no m/r/g. LUNGS: CTAB, no w/r/c. ABD: Soft, NT/ND, NBS, no masses or organomegaly. EXT: skin Warm, well perfused. no rashes. No clubbing, cyanosis, or edema. NEURO: Ambulating with no limitations. No focal deficits. Medications Current Medications Medications Dose Ordered Sig/Janny Route Start Time Stop Time Status Last Admin Dose Admin Ondansetron HCl 4 mg Q4HP PRN IV 09/30/24 18:30 Morphine Sulfate 2 mg Q4HPRN PRN IV 09/30/24 18:30 10/03/24 12:15 2 MG Pantoprazole Sodium 40 mg DAILY@0600 PO 10/02/24 06:00 10/03/24 05:08 40 MG Clotrimazole 1 applic Q12HR TOP 10/01/24 23:30 10/03/24 09:00 1 APPLIC Laboratory Results Laboratory Tests 10/03/24 05:05 Chemistry Test 10/03/24 05:05 Calcium Level 8.6 mg/dL (8.7-10.4) L Urinalysis Test 09/30/24 13:32 10/01/24 21:00 Urine Mucus Few (None Seen) Urine Yeast (Budding) Occasional /hpf (None Urine Sperm Present /hpf (None Seen) Urine Test Negative (Negative) Urine Color Colorless (Yellow) Urine Clarity Turbid (Clear) H Urine pH 5.5 (5.0-9.0) Urine Specific [place] 1.003 (1.001-1.035) Urine Protein Negative (Negative) Urine Ketones Negative (Negative) Urine Blood Negative /uL (Negative) Urine Nitrite Negative (Negative) Urine Bilirubin Negative (Negative) Urine Urobilinogen Normal mg/dL (Negative) Urine Leukocyte Esterase Negative /uL (Negative) Urine RBC 1 /hpf (0 - 4) Urine Microscopic WBC 1 /HPF (0-5) Urine Squamous Epithelial Cells Few /hpf (<5) Urine Amorphous Crystals Few /hpf (None Seen) Urine Bacteria Few /hpf (None Seen) H Urine Glucose Normal mg/dL (Normal) Labs and/or images reviewed: Labs reviewed by me, Image(s) reviewed by me Assessment/Plan Assessment/Plan 10/[address] young. 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 Patient was weak pain complaints paraspinal and pinpoint spinal. But no red flag symptoms. Bowel sounds present, cardiovascular lung exam without any significant findings. Patient is hyper focused on ureaplasma, which was apparently treated prior by gabi by PCP. Currently we will focus on constipation and we will send cultures for ureaplasma, GC, and trial baclofen muscle relaxant, repeat UA U culture,, possible PID? . Acute intractable abdominal pain Possible acute pancreatitis possibly drug induced ? Acute gastritis - CT shows fat stranding along the head of the pancreas - IV fluids - tolerating full liquid diet - pain management with morphine - Protonix Acute on chronic lower back pain - thoracic spine CT showed no evidence of fracture or traumatic malalignment - lumbar spine CT showed mild lumbar degenerative disc disease - pain management Microcytic hypochromic anemia likely iron-deficiency S/p gastric sleeve surgery - low ferritin and iron - monitor CBC - reported of constipation, not started on ferrous sulfate dx: Constipation History of ureaplasma infection Pancreatitis Gastritis Right lower extremity neuropathy status post epidural for delivery Vaginal pruritus Dysuria other plans: -IV fluids -Clotrimazole vaginal ointment -baclofen q.8 H Ceftriaxone Doxycycline Check blood culture, check GC, UA, urine culture -4 constipation we will trial lactulose, docusate, Reglan, Relistor. - for nerve pain right lower extremity patient has failed gabapentin and Lyrica we will trial this time Cymbalta. Plan discussed with: Patient Date of Service: October 03, 2024 Billing Provider: MUSA LANDIS MD Common Visit Codes: [id number] INP/OBS CARE(HIGH) MUSA LANDIS MD October 03, 2024 17:30
[2024-10-03] MEDS: FLEET ENEMA(ADULT) 135 ML PR ONE (18:46)
[2024-10-03] MEDS: DULoxetine HCL 30 MG CAP PO ONE (18:59)
[2024-10-03 21:27] LABS: Urine Bacteria FEW /hpf (None Seen); Urine Blood Negative /uL (Negative); Urine Clarity Clear (Clear); Urine Color Colorless (Yellow); Urine Protein, UAD Negative (Negative); Urine Specific Gravity 1.005 (1.001-1.035); Urine Squamous Epithelial Cell FEW /hpf (<5); Urine Urobilinogen Normal (Negative); Urine WBC < 1 /HPF (0-5); Urine pH 6.5 (5.0-9.0)
[2024-10-03] MEDS: LACTULOSE 20Gm/30ML SOLN PO SCH (22:00)
[2024-10-03] MEDS: DOCUSATE SOD 100 MG CAP PO SCH (22:11)
[2024-10-03] MEDS: METOCLOPRAMIDE HCL 5MG/ml INJ 2ml VIAL IV SCH (22:12)
[2024-10-03] MEDS: BACLOFEN 10 MG TAB PO SCH (22:12)
[2024-10-03] MEDS: METHYLNALTREXONE BROMIDE 12 MG/0.6 ML VIAL SC ONE (22:13)
[2024-10-04] VITALS (7 sets, daily range): BP systolic 94–119; BP diastolic 59–73; PULSE 59–76; RESP 16–20; TEMP 97.5–98.1; O2SAT 98–99
[2024-10-04] MEDS: DOXYCYCLINE 100MG/100ML 100 ML IV SCH (06:24)
[2024-10-04] MEDS: cefTRIAXone 1GM/50ML D5W 50 ML IV SCH (09:13)
[2024-10-04] MEDS: DULoxetine HCL 30 MG CAP PO SCH (09:14)
[2024-10-04 12:20] LABS: Basophils # (auto) 0 10 ^3/uL (0-0.2); Eosinophils # (auto) 0.1 10 ^3/uL (0-0.8); Hemoglobin 10.3 g/dL (12.2-16.2); Lymphocytes # (auto) 1.2 10 ^3/uL (0.4-5.4); Neutrophils # (auto) 3.1 10 ^3/uL (1.6-8.6); Red Cell Distribution Width 16.7 % (11.8-14.3); White Blood Cell 4.7 10^3/uL (4.4-10.8)
[2024-10-04 12:22] LABS: Basophils % (auto) 0.5 % (0.0-2.0); Eosinophils % (auto) 1.1 % (0.0-7.0); Hematocrit 31.1 % (36.0-46.0); Lymphocytes % (auto) 24.8 % (10.0-50.0); Mean Corpuscular Hemoglobin 26.2 pg (28.0-32.0); Mean Corpuscular Hgb Conc. 33.1 g/dL (32.0-36.0); Mean Corpuscular Volume 79.1 fL (80.0-100.0); Monocytes # (auto) 0.4 10 ^3/uL (0-1.3); Monocytes % (auto) 7.5 % (0.0-12.0); Neutrophils % (auto) 66.1 % (37.0-80.0); Platelet Count (auto) 293 10^3/uL (140-450); Red Blood Cells 3.93 10^6/uL (4.0-5.20)
[2024-10-04 12:37] LABS: Alanine Aminotransferase 24 U/L (7-40); Albumin 4.1 g/dL (3.2-4.8); Alkaline Phosphatase 114 U/L (46-116); Anion Gap 8 (5-15); CRP High Sensitivity 0.84 mg/dL (<1.0); Calcium 9.6 mg/dL (8.7-10.4); Carbon Dioxide 28 mmol/L (20-31); Chloride 105 mmol/L (98-107); Glucose 89 mg/dL (74-106); Potassium 4.2 mmol/L (3.5-5.1); Sodium 141 mmol/L (136-145); Total Protein 6.6 g/dL (5.7-8.2)
[2024-10-04 12:38] LABS: Bilirubin, Total 0.6 mg/dL (0.2-1.0); Blood Urea Nitrogen 7 mg/dL (9-23)
[2024-10-04 12:39] LABS: Aspartate Aminotransferase 9 U/L (13-40)
[2024-10-04 13:03] LABS: Erythrocyte Sedimentation Rate 17 mm/hr (0-20)
[2024-10-04] MEDS ORDERED: METHYLNALTREXONE BROMIDE 12 MG/0.6 ML VIAL SC SCH (17:00)
--- NOTE | 2024-10-04 17:43 | DVHPN2 ---
Subjective Update 10/04 10/[address] young. 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 Patient was weak pain complaints paraspinal and pinpoint spinal. But no red flag symptoms. Bowel sounds present, cardiovascular lung exam without any significant findings. Patient is hyper focused on ureaplasma, which was apparently treated prior by gabi by PCP. Currently we will focus on constipation and we will send cultures for ureaplasma, GC, and trial baclofen muscle relaxant, repeat UA U culture,, possible PID? . 10/04. We will advance diet as per patient request. Continue Reglan, 1 more restart tomorrow. Continue docusate and lactulose. No further enemas. Patient does patient was resolving. Continue antibiotics for possible PID versus pyelo versus cystitis. Continue baclofen for possible musculoskeletal back pain. We will watch patient 1 more day to give chest 4 some cultures to return. Advance diet and we will watch to see improvement. Reviewed: H&P Changes from previous H/P or p: No Changes General: Per HPI Objective Vitals Vital Signs Date Time Temp Pulse Resp B/P (MAP) Pulse Ox O2 Delivery O2 Flow Rate FiO2 10/04/24 13:00 97.8 67 20 119/71 (87) 98 97.8 10/04/24 08:00 Room Air* 0 21 Intake/Output Intake and Output 10/04/24 07:00 Intake Total 2300 ml Balance 2300 ml Intake Oral 2300 ml # Voids 6 # Bowel Movements 3 Exam GEN: Healthy appearing, well-developed, NAD. HEENT: NC/AT; MMM. CV: RRR, no m/r/g. LUNGS: CTAB, no w/r/c. ABD: Soft, NT/ND, NBS, no masses or organomegaly. EXT: skin Warm, well perfused. no rashes. No clubbing, cyanosis, or edema. NEURO: Ambulating with no limitations. No focal deficits. Medications Current Medications Medications Dose Ordered Sig/Janny Route Start Time Stop Time Status Last Admin Dose Admin Ondansetron HCl 4 mg Q4HP PRN IV 09/30/24 18:30 Morphine Sulfate 2 mg Q4HPRN PRN IV 09/30/24 18:30 10/04/24 12:22 2 MG Pantoprazole Sodium 40 mg DAILY@0600 PO 10/02/24 06:00 10/04/24 06:29 40 MG Clotrimazole 1 applic Q12HR TOP 10/01/24 23:30 10/04/24 09:17 1 APPLIC Baclofen 5 mg Q8HR PO 10/03/24 22:00 10/04/24 13:44 5 MG Metoclopramide HCl 5 mg Q8HR IV 10/03/24 22:00 10/04/24 13:44 5 MG Lactulose 30 ml BID PO 10/03/24 22:00 Docusate Sodium 100 mg BID PO 10/03/24 22:00 10/04/24 09:14 100 MG Doxycycline Hyclate 100 ml @ 50 mls/hr Q12H IV 10/04/24 06:00 10/04/24 06:24 50 MLS/HR Ceftriaxone Sodium 50 ml @ 100 mls/hr DAILY@09 IV 10/04/24 09:00 10/04/24 09:13 100 MLS/HR Duloxetine HCl 30 mg DAILY PO 10/04/24 10:00 10/04/24 09:14 30 MG Methylnaltrexone [place] 8 mg Q2D SC 10/05/24 17:00 10/06/24 16:59 Laboratory Results Laboratory Tests 10/04/24 11:41 Chemistry Test 10/04/24 11:41 Albumin 4.1 g/dL (3.2-4.8) Calcium Level 9.6 mg/dL (8.7-10.4) Total Protein 6.6 g/dL (5.7-8.2) LFT Test 10/04/24 11:41 Alanine Aminotransferase (ALT) 24 U/L (7-40) Alkaline Phosphatase 114 U/L (46-116) Aspartate Amino Transferase (AST) 9 U/L (13-40) L Total Bilirubin 0.6 mg/dL (0.2-1.0) Urinalysis Test 09/30/24 13:32 10/01/24 21:00 10/03/24 00:00 Urine Mucus Few (None Seen) Urine Yeast (Budding) Occasional /hpf (None Urine Sperm Present /hpf (None Seen) Urine Test Negative (Negative) Urine Amorphous Crystals Few /hpf (None Seen) Urine Color Colorless (Yellow) Urine Clarity Clear (Clear) Urine pH 6.5 (5.0-9.0) Urine Specific [place] 1.005 (1.001-1.035) Urine Protein Negative (Negative) Urine Ketones Negative (Negative) Urine Blood Negative /uL (Negative) Urine Nitrite Negative (Negative) Urine Bilirubin Negative (Negative) Urine Urobilinogen Normal mg/dL (Negative) Urine Leukocyte Esterase Negative /uL (Negative) Urine RBC 1 /hpf (0 - 4) Urine Microscopic WBC < 1 /HPF (0-5) Urine Squamous Epithelial Cells Few /hpf (<5) Urine Bacteria Few /hpf (None Seen) H Urine Glucose Normal mg/dL (Normal) Labs and/or images reviewed: Labs reviewed by me, Image(s) reviewed by me Assessment/Plan Assessment/Plan 10/04. We will advance diet as per patient request. Continue Reglan, 1 more restart tomorrow. Continue docusate and lactulose. No further enemas. Patient does patient was resolving. Continue antibiotics for possible PID versus pyelo versus cystitis. Continue baclofen for possible musculoskeletal back pain. We will watch patient 1 more day to give chest 4 some cultures to return. Advance diet and we will watch to see improvement. Acute intractable abdominal pain Possible acute pancreatitis possibly drug induced ? Acute gastritis - CT shows fat stranding along the head of the pancreas - IV fluids - tolerating full liquid diet - pain management with morphine - Protonix Acute on chronic lower back pain - thoracic spine CT showed no evidence of fracture or traumatic malalignment - lumbar spine CT showed mild lumbar degenerative disc disease - pain management Microcytic hypochromic anemia likely iron-deficiency S/p gastric sleeve surgery - low ferritin and iron - monitor CBC - reported of constipation, not started on ferrous sulfate dx: Constipation History of ureaplasma infection Pancreatitis Gastritis Right lower extremity neuropathy status post epidural for delivery Vaginal pruritus Dysuria other plans: -IV fluids -Clotrimazole vaginal ointment -baclofen q.8 H Ceftriaxone Doxycycline Check blood culture, check GC, UA, urine culture -4 constipation we will trial lactulose, docusate, Reglan, Relistor. - for nerve pain right lower extremity patient has failed gabapentin and Lyrica we will trial this time Cymbalta. Plan discussed with: Patient My Orders Orders - MUSA LANDIS MD Procedure Category Date Status Time Methylnaltrexone PHA 10/05/24 In Process [place] (Relistor) 17:00 Mechanical Soft Diet DIET 10/04/24 Transmitted Lunch Date of Service: October 04, 2024 Billing Provider: MUSA LANDIS MD Common Visit Codes: [id number] INP/OBS CARE(HIGH) MUSA LANDIS MD October 04, 2024 17:43
[2024-10-05 01:00] VITALS: BP 109/70; PULSE 60; RESP 20; TEMP 97.8; O2SAT 97
[2024-10-05 05:00] VITALS: BP 110/66; PULSE 70; RESP 18; TEMP 97.7; O2SAT 99
[2024-10-05 06:25] LABS: Basophils # (auto) 0 10 ^3/uL (0-0.2); Eosinophils # (auto) 0.1 10 ^3/uL (0-0.8); Eosinophils % (auto) 1.6 % (0.0-7.0); Monocytes # (auto) 0.5 10 ^3/uL (0-1.3); White Blood Cell 5.8 10^3/uL (4.4-10.8)
[2024-10-05 06:32] LABS: Basophils % (auto) 0.6 % (0.0-2.0); Hematocrit 29.8 % (36.0-46.0); Hemoglobin 9.9 g/dL (12.2-16.2); Lymphocytes % (auto) 33.8 % (10.0-50.0); Mean Corpuscular Hemoglobin 26.2 pg (28.0-32.0); Mean Corpuscular Hgb Conc. 33.1 g/dL (32.0-36.0); Mean Corpuscular Volume 79.1 fL (80.0-100.0); Monocytes % (auto) 8.1 % (0.0-12.0); Neutrophils # (auto) 3.3 10 ^3/uL (1.6-8.6); Neutrophils % (auto) 55.9 % (37.0-80.0); Nucleated Red Blood Cells % 0.2 %; Platelet Count (auto) 270 10^3/uL (140-450); Red Blood Cells 3.77 10^6/uL (4.0-5.20); Red Cell Distribution Width 16.9 % (11.8-14.3)
[2024-10-05 09:00] VITALS: BP 114/70; PULSE 98; RESP 18; TEMP 97.7; O2SAT 100
[2024-10-05] MEDS: HYDROcodone-ACET 5/325MG TAB PO PRN (12:50)
[2024-10-05 13:00] VITALS: BP 107/68; PULSE 65; RESP 18; TEMP 96.5; O2SAT 98
--- NOTE | 2024-10-05 14:20 | DVHPN2 ---
Subjective Update 10/05 10/[address] young. 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 Patient was weak pain complaints paraspinal and pinpoint spinal. But no red flag symptoms. Bowel sounds present, cardiovascular lung exam without any significant findings. Patient is hyper focused on ureaplasma, which was apparently treated prior by gabi by PCP. Currently we will focus on constipation and we will send cultures for ureaplasma, GC, and trial baclofen muscle relaxant, repeat UA U culture,, possible PID? . 10/04. We will advance diet as per patient request. Continue Reglan, 1 more restart tomorrow. Continue docusate and lactulose. No further enemas. Patient does patient was resolving. Continue antibiotics for possible PID versus pyelo versus cystitis. Continue baclofen for possible musculoskeletal back pain. We will watch patient 1 more day to give chest 4 some cultures to return. Advance diet and we will watch to see improvement. 10/05 back pain requiring today. Requiring more prn pain medication. We will assess with MRI, renal ultrasound, PT eval as patient has chronic right neuropathy requiring frequent breaks. Reviewed: H&P Changes from previous H/P or p: No Changes General: Per HPI Objective Vitals Vital Signs Date Time Temp Pulse Resp B/P (MAP) Pulse Ox O2 Delivery O2 Flow Rate FiO2 10/05/24 10:31 98 18 114/70 10/05/24 09:00 97.7 100 97.7 10/04/24 20:00 Room Air* 0 21 Intake/Output Intake and Output 10/05/24 07:00 Intake Total 2300 ml Balance 2300 ml Intake Oral 2150 ml IV Total 150 ml # Voids 4 # Bowel Movements 2 Exam GEN: Healthy appearing, well-developed, NAD. HEENT: NC/AT; MMM. CV: RRR, no m/r/g. LUNGS: CTAB, no w/r/c. ABD: Soft, NT/ND, NBS, no masses or organomegaly. EXT: skin Warm, well perfused. no rashes. No clubbing, cyanosis, or edema. NEURO: Ambulating with no limitations. No focal deficits. Medications Current Medications Medications Dose Ordered Sig/Janny Route Start Time Stop Time Status Last Admin Dose Admin Ondansetron HCl 4 mg Q4HP PRN IV 09/30/24 18:30 Morphine Sulfate 2 mg Q4HPRN PRN IV 09/30/24 18:30 10/05/24 10:31 2 MG Pantoprazole Sodium 40 mg DAILY@0600 PO 10/02/24 06:00 10/05/24 05:08 40 MG Clotrimazole 1 applic Q12HR TOP 10/01/24 23:30 10/05/24 10:31 1 APPLIC Baclofen 5 mg Q8HR PO 10/03/24 22:00 10/05/24 05:08 5 MG Metoclopramide HCl 5 mg Q8HR IV 10/03/24 22:00 10/05/24 05:08 5 MG Lactulose 30 ml BID PO 10/03/24 22:00 Docusate Sodium 100 mg BID PO 10/03/24 22:00 10/05/24 10:29 100 MG Doxycycline Hyclate 100 ml @ 50 mls/hr Q12H IV 10/04/24 06:00 10/05/24 05:09 50 MLS/HR Ceftriaxone Sodium 50 ml @ 100 mls/hr DAILY@09 IV 10/04/24 09:00 10/05/24 10:29 100 MLS/HR Duloxetine HCl 30 mg DAILY PO 10/04/24 10:00 10/05/24 10:29 30 MG Acetaminophen/ Hydrocodone Bitart 1 tab Q4HPRN PRN PO 10/05/24 12:30 10/05/24 12:50 1 TAB Laboratory Results Laboratory Tests 10/04/24 11:41 10/05/24 05:43 Urinalysis Test 09/30/24 13:32 10/01/24 21:00 10/03/24 00:00 Urine Mucus Few (None Seen) Urine Yeast (Budding) Occasional /hpf (None Urine Sperm Present /hpf (None Seen) Urine Test Negative (Negative) Urine Amorphous Crystals Few /hpf (None Seen) Urine Color Colorless (Yellow) Urine Clarity Clear (Clear) Urine pH 6.5 (5.0-9.0) Urine Specific [place] 1.005 (1.001-1.035) Urine Protein Negative (Negative) Urine Ketones Negative (Negative) Urine Blood Negative /uL (Negative) Urine Nitrite Negative (Negative) Urine Bilirubin Negative (Negative) Urine Urobilinogen Normal mg/dL (Negative) Urine Leukocyte Esterase Negative /uL (Negative) Urine RBC 1 /hpf (0 - 4) Urine Microscopic WBC < 1 /HPF (0-5) Urine Squamous Epithelial Cells Few /hpf (<5) Urine Bacteria Few /hpf (None Seen) H Urine Glucose Normal mg/dL (Normal) Microbiology Microbiology Date/Time Source Procedure Growth Status 10/04/24 13:00 Urine - Midstream Clean Catch Urine Culture - Preliminary Resulted Labs and/or images reviewed: Labs reviewed by me, Image(s) reviewed by me Assessment/Plan Assessment/Plan 10/05 back pain requiring today. Requiring more prn pain medication. We will assess with MRI, renal ultrasound, PT eval as patient has chronic right neuropathy requiring frequent breaks. Acute intractable abdominal pain Possible acute pancreatitis possibly drug induced ? Acute gastritis - CT shows fat stranding along the head of the pancreas - IV fluids - tolerating full liquid diet - pain management with morphine - Protonix Acute on chronic lower back pain - thoracic spine CT showed no evidence of fracture or traumatic malalignment - lumbar spine CT showed mild lumbar degenerative disc disease - pain management Microcytic hypochromic anemia likely iron-deficiency S/p gastric sleeve surgery - low ferritin and iron - monitor CBC - reported of constipation, not started on ferrous sulfate dx: Constipation History of ureaplasma infection Pancreatitis Gastritis Right lower extremity neuropathy status post epidural for delivery Vaginal pruritus Dysuria other plans: -IV fluids -Clotrimazole vaginal ointment -baclofen q.8 H Ceftriaxone Doxycycline Check blood culture, check GC, UA, urine culture -4 constipation we will trial lactulose, docusate, Reglan, Relistor. - for nerve pain right lower extremity patient has failed gabapentin and Lyrica we will trial this time Cymbalta. Plan discussed with: Patient My Orders Orders - MUSA LANDIS MD Procedure Category Date Status Time Hydrocodone-Acet PHA 10/05/24 In Process /325mg Tab ([place] 12:30 Lumbar Spine Wo MRI 10/05/24 Logged Contrast 14:15 Kidney US 10/05/24 Logged 14:15 Pt Request For Service PT 10/05/24 Logged 14:15 Date of Service: October 05, 2024 Billing Provider: MUSA LANDIS MD Common Visit Codes: [id number] INP/OBS CARE(HIGH) MUSA LANDIS MD October 05, 2024 14:20
[2024-10-05 17:00] VITALS: BP 108/70; PULSE 66; RESP 18; TEMP 96.5; O2SAT 96
[2024-10-05] MEDS ORDERED: METHYLNALTREXONE BROMIDE 12 MG/0.6 ML VIAL SC SCH (17:00)
--- NOTE | 2024-10-05 17:40 | DVH ---
INDICATION: r/o pyelo or hydro, as cause of backpain TECHNIQUE: Multiple real-time sonographic images of the kidneys and bladder were obtained. COMPARISON: None FINDINGS: The right kidney measures 9.1 cm in length, which is normal in size. There is normal echoge nicity of the right kidney. No hydronephrosis. The left kidney measures 9.0 cm in length, which is normal in size. There is normal echogenicity of t he left kidney. No hydronephrosis. No large intraluminal masses are seen in the bladder. Prior to voiding the bladder volume measures vo lume 8.9 mL. Bladder wall measures 2 mm. Patient had no urge to void IMPRESSION: 1. Right kidney measures 9.1 cm. Left kidney measures 9 cm. 2. No hydronephrosis 3. Bladder volume 8.9 mL. Patient had no urge to void. HS:Y
[2024-10-05] MEDS: HYDROcodone-ACET 10/325MG TAB PO PRN (18:28)
[2024-10-05 21:00] VITALS: BP 118/73; PULSE 74; RESP 16; TEMP 98.2; O2SAT 98
[2024-10-06] VITALS (7 sets, daily range): BP systolic 100–111; BP diastolic 56–83; PULSE 61–76; RESP 15–18; TEMP 98–98.8; O2SAT 95–98
[2024-10-06 07:12] LABS: Basophils # (auto) 0 10 ^3/uL (0-0.2); Basophils % (auto) 0.6 % (0.0-2.0); Eosinophils # (auto) 0.1 10 ^3/uL (0-0.8); Hemoglobin 9.9 g/dL (12.2-16.2); Lymphocytes # (auto) 1.7 10 ^3/uL (0.4-5.4); Lymphocytes % (auto) 32.8 % (10.0-50.0); Mean Corpuscular Hemoglobin 25.5 pg (28.0-32.0); Mean Corpuscular Volume 79.5 fL (80.0-100.0); Monocytes # (auto) 0.4 10 ^3/uL (0-1.3); Monocytes % (auto) 8.6 % (0.0-12.0); Neutrophils # (auto) 2.8 10 ^3/uL (1.6-8.6); Platelet Count (auto) 275 10^3/uL (140-450); Red Blood Cells 3.91 10^6/uL (4.0-5.20); Red Cell Distribution Width 16.6 % (11.8-14.3)
--- NOTE | 2024-10-06 10:15 | DVHDS2 ---
Discharge Summary Date of Admission September 30, 2024 at 18:23 Date of Discharge: October 06, 2024 Labs/Diagnostic Data: Laboratory Results Test 10/06/24 06:12 10/04/24 11:41 10/03/24 00:00 10/02/24 05:18 White Blood Count 5.0 10^3/uL (4.4-10.8) Red Blood Count 3.91 10^6/uL (4.0-5.20) Hemoglobin 9.9 g/dL (12.2-16.2) Hematocrit 31.0 % (36.0-46.0) Mean Corpuscular Volume 79.5 fL (80.0-100.0) Mean Corpuscular Hemoglobin 25.5 pg (28.0-32.0) Mean Corpuscular Hemoglobin Concent 32.0 g/dL (32.0-36.0) Red Cell Distribution Width 16.6 % (11.8-14.3) Platelet Count 275 10^3/uL (140-450) Mean Platelet Volume 8.4 fL (6.9-10.8) Neutrophils (%) (Auto) 56.0 % (37.0-80.0) Lymphocytes (%) (Auto) 32.8 % (10.0-50.0) Monocytes (%) (Auto) 8.6 % (0.0-12.0) Eosinophils (%) (Auto) 2.0 % (0.0-7.0) Basophils (%) (Auto) 0.6 % (0.0-2.0) Neutrophils # (Auto) 2.8 10 ^3/uL (1.6-8.6) Lymphocytes # (Auto) 1.7 10 ^3/uL (0.4-5.4) Monocytes # (Auto) 0.4 10 ^3/uL (0-1.3) Eosinophils # (Auto) 0.1 10 ^3/uL (0-0.8) Basophils # (Auto) 0 10 ^3/uL (0-0.2) Nucleated Red Blood Cells 0.0 % Erythrocyte Sedimentation Rate 17 mm/hr (0-20) Sodium Level 141 mmol/L (136-145) Potassium Level 4.2 mmol/L (3.5-5.1) Chloride Level 105 mmol/L (98-107) Carbon Dioxide Level 28 mmol/L (20-31) Anion Gap 8 (5-15) Blood Urea Nitrogen 7 mg/dL (9-23) Creatinine 0.70 mg/dL (0.550-1.02) Glomerular Filtration Rate Calc 116 mL/min (>90) BUN/Creatinine Ratio 10.0 (10.0-20.0) Serum Glucose 89 mg/dL (74-106) Calcium Level 9.6 mg/dL (8.7-10.4) Total Bilirubin 0.6 mg/dL (0.2-1.0) Aspartate Amino Transferase (AST) 9 U/L (13-40) Alanine Aminotransferase (ALT) 24 U/L (7-40) Alkaline Phosphatase 114 U/L (46-116) C-Reactive Protein High Sensitivity 0.84 mg/dL (<1.0) Total Protein 6.6 g/dL (5.7-8.2) Albumin 4.1 g/dL (3.2-4.8) Urine Color Colorless (Yellow) Urine Clarity Clear (Clear) Urine pH 6.5 (5.0-9.0) Urine Specific [place] 1.005 (1.001-1.035) Urine Protein Negative (Negative) Urine Ketones Negative (Negative) Urine Blood Negative /uL (Negative) Urine Nitrite Negative (Negative) Urine Bilirubin Negative (Negative) Urine Urobilinogen Normal mg/dL (Negative) Urine Leukocyte Esterase Negative /uL (Negative) Urine RBC 1 /hpf (0 - 4) Urine Microscopic WBC < 1 /HPF (0-5) Urine Squamous Epithelial Cells Few /hpf (<5) Urine Bacteria Few /hpf (None Seen) Urine Glucose Normal mg/dL (Normal) Lactate Dehydrogenase 139 U/L (120-246) Test 10/01/24 21:00 10/01/24 06:45 09/30/24 13:32 Urine Amorphous Crystals Few /hpf (None Seen) Iron Level 45 ug/dL (50-170) Total Iron Binding Capacity 286 ug/dL (250-425) Percent Iron Saturation 15.7 % (15-50) Ferritin 8.0 ng/mL (10-291) Triglycerides Level 68 mg/dL (< 150) Cholesterol Level 105 mg/dL (< 200) LDL Cholesterol 33 mg/dL (< 100) HDL Cholesterol 54 mg/dL (40-59) Lipase 23 U/L (12-53) Vitamin B12 Level 281 pg/mL (211-911) Urine Mucus Few (None Seen) Urine Yeast (Budding) Occasional /hpf (None Urine Sperm Present /hpf (None Seen) Urine Test Negative (Negative) Other Laboratory Tests 10/06/24 06:12 10/04/24 11:41 Brief Hx & Hospital Course: 10/03 Patient was here for abdominal pain, back pain which is the main complaint now, 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 Patient was weak pain complaints paraspinal and pinpoint spinal. But no red flag symptoms. Bowel sounds present, cardiovascular lung exam without any significant findings. Patient is hyper focused on ureaplasma, which was apparently treated prior by doxy by PCP. Currently we will focus on constipation and we will send cultures for ureaplasma, GC, and trial baclofen muscle relaxant, repeat UA U culture,, possible PID? . tx w ctx/doxy. 10/04. We will advance diet as per patient request. Continue Reglan, 1 more restart tomorrow. Continue docusate and lactulose. No further enemas. Patient does patient was resolving. Continue antibiotics for possible PID versus pyelo versus cystitis. Continue baclofen for possible musculoskeletal back pain. We will watch patient 1 more day to give chest 4 some cultures to return. Advance diet and we will watch to see improvement. 10/05 back pain requiring more prn analgesia today. Requiring more prn pain medication. We will assess with MRI, renal ultrasound, PT eval as patient has chronic right neuropathy requiring frequent breaks. 10/06 - Renal ultrasound negative for nephrosis and/or nephrolithiasis MRI lumbar concerning findings with mild central canal stenosis. urine culture concern with some gum colonies still pending growth we will need to follow up with PCP. PT eval without any significant findings or concerns. Independent and stable for ambulation. DC plan: -[place] 10 (upto 3x/day) as needed, as 3rd line after Tylenol and ibuprofen -continue bowel regimen (docusate 100mg bid x30 day, miralax 17g/day x 7 days, fiber tabs daily x14 days with water) -discuss relistor need with PMR doctor -Flexeril 10 mg HS and b.i.d. p.r.n. during day (HS scheduled for 7 days) -Referral to spinal ortho for unresolving back -Doxycycline 100 mg twice daily for 7 days -PCP to follow up with urine culture -Follow up with PCP to review discharge -Regular scheduled follow up with primary EMR. - referral to neurosurgery -hold zepbound until reviewed and approved for continue by primary doctor. diagnosis: Acute intractable abdominal pain,Due to below, resolved Acute pancreatitis,? drug-induced, resolving history of gastric sleeve current therapy with G LP 1 agonist, Zepbound Constipation, acute on chronic , due to below Chronic opiate use, chronic pain syndrome acute cystitis Intractable back pain, likely due to below acute cystitis, possible Central spinal canal stenosis, mild History of ureaplasma infection Gastritis Right lower extremity neuropathy status post epidural for delivery Condition at Discharge: Fair Final Diagnosis/Problems List Acute intractable abdominal pain,Due to below, resolved Acute pancreatitis,? drug-induced, resolving history of gastric sleeve current therapy with G LP 1 agonist, Zepbound Constipation, acute on chronic , due to below Chronic opiate use, chronic pain syndrome acute cystitis Intractable back pain, likely due to below acute cystitis, possible Central spinal canal stenosis, mild History of ureaplasma infection Gastritis Right lower extremity neuropathy status post epidural for delivery Discharge Disposition: Home Discharge Statement: "Patient was advised to return to the ER or call 911 if any headaches, dizziness, shortness of breath, chest pain, abdominal pain, bleeding, fevers, or worsening of medical condition. Patient was counseled about treatment plan, medications, possible side effects, patient�verbalized understanding. All questions were answered to the best of my ability. This discharge took greater then 30 minutes in planning, reviewing documentation, counseling the patient, and discussing with other team members." ASSESSMENT ASSESSMENT Assessment Date of Service: October 06, 2024 Billing Provider: MUSA LANDIS MD Common Visit Codes: 18534-HWM/OBS DISCH DAY >30min MUSA LANDIS MD October 06, 2024 10:14
[2024-10-06] MEDS: POLYETHYLENE GLYCOL 17 GM PWDR PO SCH (10:34)
--- NOTE | 2024-10-06 10:42 | DVH ---
PROCEDURE: MRI lumbar spine without contrast. INDICATION: recurrent back pain. r/o mass, soft tissue, nerve imping COMPARISON: None TECHNIQUE: MRI lumbar spine without intravenous contrast utilizing multiplanar, multisequence techni que. FINDINGS: The alignment of the lumbar spine vertebral bodies is preserved. Bone marrow signal is homogenous and unremarkable. The vertebral body heights are maintained. There is intervertebral disc space narrowin g and diminished T2 signal intensity at L5-S1. Diminished T2 signal intensity is noted within the L3- L4 and L4-L5 intervertebral discs compatible with mild desiccation. The conus medullaris is normal in signal characteristics and terminates at the T12-L1 level. Paraspinal muscles are unremarkable. At the T12-L1 level, there is no evidence of central spinal canal or neuroforaminal stenosis. At the L1-L2 level, there is no evidence of central spinal canal or neuroforaminal stenosis. At the L2-L3 level, there is no evidence of central spinal canal or neuroforaminal stenosis. At the L3-L4 level, there is no evidence of central spinal canal or neuroforaminal stenosis. At the L4-L5 level, there is no evidence of central spinal canal stenosis. Mild bilateral neural for aminal stenosis due to bilateral facet arthropathy. At the L5-S1 level, there is posterior central disc protrusion. Mild canal stenosis. No significant neural foraminal stenosis. Other: There is a 2.6 cm T2 hyperintense mass with a septation within the pelvis. IMPRESSION: 1. Posterior central disc protrusion at L5-S1 causing mild canal stenosis. Mild bilateral neural fora zohra stenosis at L4-L5 due to facet arthropathy. 2. 2.6 cm T2 hyperintense mass a septation in the pelvis possibly arising from the ovary. A pelvic ul trasound is recommended for further evaluation.
[2024-10-06] MEDS ORDERED: POLYPOW PO (13:53)
[2024-10-06] MEDS ORDERED: CALC625T13 PO (13:53)
[2024-10-06] MEDS ORDERED: DOXY100C79 PO (13:53)
[2024-10-06] MEDS ORDERED: DOCU-94 PO (13:53)
[2024-10-06] MEDS ORDERED: CYCL-611 PO (13:53)
[2024-10-06] MEDS ORDERED: HYDR-4798 PO (13:53)
[2024-10-06 20:06] LABS: Chlamydia Trachomatis, NAA Negative (Negative); Neisseria gonorrhoeae, NAA Negative (Negative)
== END 2024-10-06 19:20 | disposition home or self-care (01) | DRG 282 ==
LOC: ER 12:58 → OVERFLOW 18:23 → EAST 21:04
PROVIDERS: ADMIT Student in an Organized Health Care Education/Training Program; ATTEND Student in an Organized Health Care Education/Training Program
DX: K85.30 Drug induced acute pancreatitis without necrosis or infection (principal); D50.9 Iron deficiency anemia, unspecified; K29.70 Gastritis, unspecified, without bleeding; N30.00 Acute cystitis without hematuria; K59.03 Drug induced constipation; M51.369 Other intervertebral disc degeneration, lumbar region without mention of lumbar back pain or lower extremity pain; E86.0 Dehydration; G57.91 Unspecified mononeuropathy of right lower limb; E66.9 Obesity, unspecified; G62.9 Polyneuropathy, unspecified; R79.89 Other specified abnormal findings of blood chemistry; G89.4 Chronic pain syndrome; M48.00 Spinal stenosis, site unspecified; T40.605A Adverse effect of unspecified narcotics, initial encounter; Z98.84 Bariatric surgery status; Z91.040 Latex allergy status; Z79.899 Other long term (current) drug therapy; Z98.891 History of uterine scar from previous surgery; Z68.35 Body mass index [BMI] 35.0-35.9, adult; Z79.891 Long term (current) use of opiate analgesic; Y92.89 Other specified places as the place of occurrence of the external cause
CPT/HCPCS: 36415; 71045; 72128; 72131; 72148; 74176; 76775; 80048; 80053; 80061; 81001; 81025; 82607; 82728; 83540; 83550; 83615; 83690; 85025; 85652; 86141; 87040; 87086; 96361; 96374; 96375; 97163; G0378; J2212; J2405; J2470

== ENCOUNTER 2024-11-14 14:48 | Emergency (ER) | payer MEDICAID ==
[~2024-11-14 14:48] MED LIST: CALC625T13 PO; CYCL-611 PO; DOCU-94 PO; DOXY100C79 PO; HYDR-4798 PO; HYDR1TAB97 PO; LIDO1KIT21; LIDO1PAD55 TOP; NYS15PW TOP; POLYPOW PO; TRIO1TP TOP
[2024-11-14] MEDS ORDERED: KETOROLAC TROMETH 60MG/2ML VIAL IM ONE (15:30)
[2024-11-14] MEDS ORDERED: ONDANSETRON ODT 4 MG TAB PO ONE (15:30)
--- NOTE | 2024-11-14 15:30 | ED.PDOC ---
Back pain HPI HPI Comments This is a 34 year old female presenting to the ED with chief complaint of back pain. Patient reports that she has been experiencing lower back pain for the past month, being seen a month ago for the same complaint in the ED. Patient relays that she was diagnosed with spinal stenosis, but has not followed up with her PCP regarding this concern. Patient denies any acute injury, fall, chest pain, numbness, weakness, or tingling. Patient is able to ambulate. Time Seen by MD: 15:27 Primary Care Provider: DANIEL Reviewed Notes: Nurses Notes, Medications, Allergies Allergies: Coded Allergies: Latex (Verified Allergy, Unknown, 09/30/24) Home Meds Active Scripts Doxycycline (Monohydrate) (Doxycycline) 100 Mg Cap, 100 MG PO BID for 7 Days, #14 CAP 0 Refills Prov:MUSA LANDIS MD 10/06/24 Calcium Polycarbophil (Fiber Tabs) 625 Mg Tab, 625 MG PO BID for 14 Days, #28 TAB 0 Refills Prov:MUSA LANDIS MD 10/06/24 Polyethylene Glycol 3350 (Gavilax) 17 Gm/Scoop Pow, 17 GM PO DAILY for 7 Days, #7 POW 0 Refills Prov:MUSA LANDIS MD 10/06/24 Docusate Sodium (Colace) 100 Mg Cap, 1 CAP PO BID, #60 CAP 0 Refills Prov:MUSA LANDIS MD 10/06/24 Cyclobenzaprine HCl (Cyclobenzaprine Hydrochlo) 10 Mg Tab, 10 MG PO TIDP PRN for 7 Days, #30 TAB 0 Refills Prov:MUSA LANDIS MD 10/06/24 Hydrocodone-Acetaminophen (Hydrocodone Bitartrate/AC 10-325 mg) 1 Tab Tab, 1 TAB PO TIDP PRN for 6 Days, #20 TAB 0 Refills Prov:MUSA LANDIS MD 10/06/24 Reported Medications Nystatin (Mycostatin) 1 Applic Ap, TOP BID 09/30/24 Triamcinolone Acetonide (Kenalog) 1 Applic Ap, TOP BID 09/30/24 Lidocaine-Prilocaine (Agoneaze 2.5-2.5 %) 1 Kit Kit 09/30/24 Lidocaine (Lidocaine) 5 % Pad, 2 PATCH TOP Q12HR 5/6/25 Hydrocodone-Acetaminophen (Hydrocodone/Acetaminophen 5-325 mg) 1 Tab Tab, 1 TAB PO BID PRN for PAIN SCALE 7 THRU 10 09/30/24 Information Source: Patient Mode of Arrival: Ambulatory Timing: Weeks Duration: Since onset Location of Back pain: (B) Lower back Severity: Moderate Prehospital treatment: None Quality: Aching Onset: Spontaneous History of: Chronic Back Pain, Other (Patient states history of spinal stenosis) Past Medical History PAST MEDICAL HISTORY: Denies Past Medical History (Other): Spinal stenosis per patient Surgical History: Denies all surgeries SCRAP CHARGER History: Unknown Family History Family History: Unknown Social History Smoker: Non-Smoker Alcohol: Denies ETOH Use Drugs: Denies Drug Use Lives In: Home Constitutional: denies: chills, diaphoresis, fatigue, fever, malaise, sweats, weakness, others EENTM: denies: blurred vision, double vision, ear bleeding, ear discharge, ear drainage, ear pain, ear ringing, eye pain, eye redness, hearing loss, mouth pain, mouth swelling, nasal discharge, nose bleeding, nose congestion, nose pain, photophobia, tearing, throat pain, throat swelling, voice changes, others Respiratory: denies: cough, hemoptysis, orthopnea, SOB at rest, shortness of breath, SOB with excertion, stridor, wheezing, others Cardiovascular: denies: chest pain, dizzy spells, diaphoresis, Dyspnea on exertion, edema, irregular heart beat, left arm pain, lightheadedness, palpitations, PND, syncope, others Gastrointestinal: denies: abdomen distended, abdominal pain, blood streaked bowels, constipated, diarrhea, dysphagia, difficulty swallowing, hematemesis, melena, nausea, poor appetite, poor fluid intake, rectal bleeding, rectal pain, vomiting, others Genitourinary: denies: abnormal vagina bleeding, burning, dyspareunia, dysuria, flank pain, frequency, hematuria, incontinence, pain, , vagina discharge, urgency, others Neurological: denies: dizziness, fainting, headache, left sided numbness, left sided weakness, numbness, paresthesia, pre-existing deficit, right sided numbness, right sided weakness, seizure, speech problems, tingling, tremors, weakness, others Musculoskeletal: reports: back pain; denies: gout, joint pain, joint swelling, muscle pain, muscle stiffness, neck pain, others Integumetry: denies: bruises, change in color, change in hair/nails, dryness, laceration, lesions, lumps, rash, wounds, others Allergic/Immunocompromised: denies: Difficulty Healing, Frequent Infections, Hives, Itching, others Hematologic/Lymphatic: denies: anemia, blood clots, easy bleeding, easy bruising, swollen glands, others Endocrine: denies: excessive hunger, excessive sweating, excessive thirst, excessive urination, flushing, intolerance to cold, intolerance to heat, unexplained weight gain, unexplained weight loss, others Psychiatric: denies: anxiety, bipolar disorder, depression, hopeless, panic disorder, schizophrenia, sleepless, suicidal, others All Other Systems: Reviewed and Negative Physical Exam General Appearance: Moderate Distress (Patient appears to be in [id number] distress due to low back pain concerns.), Normal HEENT: Normal ENT Inspection, Pharynx Normal, TMs Normal Neck: Full Range of Motion, Non-Tender, Normal, Normal Inspection Respiratory: Chest Non-Tender, Lungs Clear, No Accessory Muscle Use, No Respiratory Distress, Normal Breath Sounds Cardiovascular: No Edema, No JVD, No Murmur, No Gallop, Normal Peripheral Pulses, Regular Rate/Rhythm Breast Exam: Deferred Gastrointestinal: No Organomegaly, Non Tender, No Pulsatile Mass, Normal Bowel Sounds, Soft Genitalia: Deferred Pelvic: Deferred Rectal: Deferred Extremities: No calf tenderness, Normal capillary refill, Normal inspection, Normal range of motion, Non-tender, No pedal edema Musculoskeletal : Location: Bilateral Extremity Location: Back (Diffuse bilateral lumbar tenderness to palpation. No step-offs noted. Patient denies any saddle paresthesia. Distal neurovascularly intact.) Apperance: Normal Neurologic: Alert, canary raiser II-XII nml as Tested, No Motor Deficits, Normal Affect, Normal Mood, No Sensory Deficits Cerebellar Function: Normal Reflexes: Normal Skin: Dry, Normal Color, Warm Lymphatic: No Adenopathy Was a procedure done? Was a procedure done?: No Back Pain Differential Dx Differential Diagnosis: Other (Chronic back pain, spinal stenosis) X-Ray, Labs, Meds, VS Comment Spent time of evaluation discussing the patient's concerns with her. Advised that she has a chronic condition that will require primary care management moving forward. Advised that we will repeat imaging study today to confirmed any changes that may have occurred, but additional intervention would likely not occurred our facility today as I believe the patient was seeking a surgical evaluation. Triage and nursing attempted to locate the patient for triage evaluation and medication dispensing, but I was informed that the patient appears to have eloped from the facility. Time of 1ST Reevaluation: 16:04 Reevaluation 1ST: Unchanged Consultation: PCP Patient Education/Counseling: Diagnosis, Treatment Family Education/Counseling: Diagnosis, Treatment, No Family Present SEPSIS Sepsis Screen Physician Orders Lumbar Spine 3 View (11/14/24 15:18) Departure 1 Departure Time of Disposition: 16:04 Impression: Primary Impression: Chronic low back pain Disposition: 07 LEFT AWOL/ELOPED Condition: Fair Discharged With: Self Critical Care Note Critical Care Time?: No Stability Stability form required: No Heart Score Heart Score: Heart Score Response (Comments) Value History N/A 0 EKG N/A 0 Age N/A 0 Risk Factors N/A 0 Troponin N/A 0 Total 0 I personally scribed for DANIELE OLIVAS PAC ([email or web address]) on 11/14/24 at 15:30. Electronically submitted by Demetrius Herrera ([email or web address]). DANIELE OLIVAS PAC Nov 14, 2024 15:30
== END 2024-11-14 15:05 | disposition left against medical advice (07) ==
LOC: ER 14:48
DX: G89.29 Other chronic pain (principal); M54.50 Low back pain, unspecified; Z79.899 Other long term (current) drug therapy; Z88.8 Allergy status to other drugs, medicaments and biological substances

== ENCOUNTER 2025-01-13 01:35 | Inpatient (IN) | payer MEDICAID ==
[~2025-01-13] VITALS: Ht 157.5 cm; Wt 77.5 kg
--- NOTE | 2025-01-13 01:54 | ECG ---
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
--- NOTE | 2025-01-13 02:15 | ED.PDOC ---
History of Present Illness HPI Comments 34 y/o F, with no significant medical history, presents with c/c posterior head and neck, sternal chest, and [id number] back pain s/p multiple syncopes and falls. Patient endorses on having sudden and unprovoked onset of 2x syncopal episodes with fall injuries, yesterday. She reports on no prior history of syncopes in the past. First syncopal episode took place at 2100, last night, where she collapsed after [facility] her children's [facility]. Second syncopal episode took place at home, while taking a shower, unwitnessed. No medical intervention sought for events. Patient endorses on no prior ailments or injuries. She denies having any shortness of breath, dizziness, weakness, lightheadedness, or further associated symptoms at this time. Chief Complaint: Syncope Time Seen by MD: 01:50 Primary Care Provider: SANCHEZ Reviewed Notes: Nurses Notes, Medications, Allergies Allergies: Coded Allergies: Latex (Verified Allergy, Unknown, 09/30/24) Home Meds Active Scripts Doxycycline (Monohydrate) (Doxycycline) 100 Mg Cap, 100 MG PO BID for 7 Days, #14 CAP 0 Refills Prov:MUSA LANDIS MD 10/06/24 Calcium Polycarbophil (Fiber Tabs) 625 Mg Tab, 625 MG PO BID for 14 Days, #28 TAB 0 Refills Prov:MUSA LANDIS MD 10/06/24 Polyethylene Glycol 3350 (Gavilax) 17 Gm/Scoop Pow, 17 GM PO DAILY for 7 Days, #7 POW 0 Refills Prov:MUSA LANDIS MD 10/06/24 Docusate Sodium (Colace) 100 Mg Cap, 1 CAP PO BID, #60 CAP 0 Refills Prov:MUSA LANDIS MD 10/06/24 Cyclobenzaprine HCl (Cyclobenzaprine Hydrochlo) 10 Mg Tab, 10 MG PO TIDP PRN for 7 Days, #30 TAB 0 Refills Prov:MUSA LANDIS MD 10/06/24 Hydrocodone-Acetaminophen (Hydrocodone Bitartrate/AC 10-325 mg) 1 Tab Tab, 1 TAB PO TIDP PRN for 6 Days, #20 TAB 0 Refills Prov:MUSA LANDIS MD 10/06/24 Reported Medications Nystatin (Mycostatin) 1 Applic Ap, TOP BID 09/30/24 Triamcinolone Acetonide (Kenalog) 1 Applic Ap, TOP BID 09/30/24 Lidocaine-Prilocaine (Agoneaze 2.5-2.5 %) 1 Kit Kit 09/30/24 Lidocaine (Lidocaine) 5 % Pad, 2 PATCH TOP Q12HR 09/30/24 Hydrocodone-Acetaminophen (Hydrocodone/Acetaminophen 5-325 mg) 1 Tab Tab, 1 TAB PO BID PRN for PAIN SCALE 7 THRU 10 09/30/24 Information Source: Patient Mode of Arrival: Ambulatory Severity: Moderate Timing: Hours Duration: Minutes Prehospital treatment: None Past Medical History PAST MEDICAL HISTORY: Denies Surgical History: Denies 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 surgeries [employer]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 Family History Family History: Unknown Social History Smoker: Non-Smoker Alcohol: Denies ETOH Use Drugs: Denies Drug Use Lives In: Home All Other Systems: Reviewed and Negative (Comprehensive systems review obtained and negative except for what is stated in the HPI.) Physical Exam General Appearance: No Apparent Distress, Normal HEENT: Normal ENT Inspection, Pharynx Normal, TMs Normal Neck: Full Range of Motion, Non-Tender, Normal, Normal Inspection Respiratory: Chest Non-Tender, Lungs Clear, No Accessory Muscle Use, No Respiratory Distress, Normal Breath Sounds Cardiovascular: No Edema, No JVD, No Murmur, No Gallop, Normal Peripheral Pulses, Regular Rate/Rhythm Breast Exam: Deferred Gastrointestinal: No Organomegaly, Non Tender, No Pulsatile Mass, Normal Bowel Sounds, Soft Genitalia: Deferred Pelvic: Deferred Rectal: Deferred Extremities: No calf tenderness, Normal capillary refill, Normal inspection, Normal range of motion, Non-tender, No pedal edema Musculoskeletal : Apperance: Normal Neurologic: Alert, montessori program director II-XII nml as Tested, No Motor Deficits, Normal Mood, No Sensory Deficits, Other (argumentative affect) Cerebellar Function: Normal Reflexes: Normal Skin: Dry, Normal Color, Warm Lymphatic: No Adenopathy Was a procedure done? Was a procedure done?: No EKG EKG : Pulse Rate (adult): 118 [place]: Normal Cardiac Rhythm: ST Block: None Hypertrophy: None ST: Normal Differential Dx Considerations may include: closed head injury, intracranial bleed, fractures, contusions, bruising, sprain, dislocation, hypoxia, vasovagal response, among others X-Ray, Labs, Meds, VS Vital Signs Date Time Temp Pulse Resp B/P (MAP) Pulse Ox O2 Delivery O2 Flow Rate FiO2 01/13/25 02:15 118 01/13/25 01:45 119 01/13/25 01:36 98.8 109 18 121/80 100 98.8 Lab Test 01/13/25 02:23 Range/Units White Blood Count 6.0 4.4-10.8 10^3/uL Red Blood Count 4.25 4.0-5.20 10^6/uL Hemoglobin 11.5 L 12.2-16.2 g/dL Hematocrit 34.5 L 36.0-46.0 % Mean Corpuscular Volume 81.1 80.0-100.0 fL Mean Corpuscular Hemoglobin 27.0 L 28.0-32.0 pg Mean Corpuscular Hemoglobin Concent 33.3 32.0-36.0 g/dL Red Cell Distribution Width 16.4 H 11.8-14.3 % Platelet Count 322 140-450 10^3/uL Mean Platelet Volume 8.2 6.9-10.8 fL Neutrophils (%) (Auto) 87.5 H 37.0-80.0 % Lymphocytes (%) (Auto) 6.7 L 10.0-50.0 % Monocytes (%) (Auto) 5.1 0.0-12.0 % Eosinophils (%) (Auto) 0.2 0.0-7.0 % Basophils (%) (Auto) 0.5 0.0-2.0 % Neutrophils # (Auto) 5.2 1.6-8.6 10 ^3/uL Lymphocytes # (Auto) 0.4 0.4-5.4 10 ^3/uL Monocytes # (Auto) 0.3 0-1.3 10 ^3/uL Eosinophils # (Auto) 0 0-0.8 10 ^3/uL Basophils # (Auto) 0 0-0.2 10 ^3/uL Nucleated Red Blood Cells 0.0 % Sodium Level 138 136-145 mmol/L Potassium Level 3.4 L 3.5-5.1 mmol/L Chloride Level 105 98-107 mmol/L Carbon Dioxide Level 22 20-31 mmol/L Anion Gap 11 5-15 Blood Urea Nitrogen 12 9-23 mg/dL Creatinine 0.79 0.550-1.02 mg/dL Glomerular Filtration Rate Calc 101 >90 mL/min BUN/Creatinine Ratio 15.2 10.0-20.0 Serum Glucose 97 74-106 mg/dL Calcium Level 9.4 8.7-10.4 mg/dL Magnesium Level 1.9 1.6-2.6 mg/dL Total Bilirubin 0.5 0.2-1.0 mg/dL Aspartate Amino Transferase (AST) 11 L 13-40 U/L Alanine Aminotransferase (ALT) < 9 7-40 U/L Alkaline Phosphatase 76 46-116 U/L Total Protein 7.4 5.7-8.2 g/dL Albumin 4.8 3.2-4.8 g/dL Current Medications Medications (Trade) Dose Ordered Sig/Janny Route Start Time Stop Time Status Last Admin Acetaminophen/ Hydrocodone Bitart ([place] 10/325MG Tab) 1 tab ONCE ONCE PO 01/13/25 02:45 01/13/25 02:46 DC 01/13/25 02:57 Time of 1ST Reevaluation: 02:20 Reevaluation 1ST: Unchanged Patient Education/Counseling: Diagnosis, Treatment Family Education/Counseling: No Family Present SEPSIS Sepsis Screen Date sepsis recognized/suspect: Jan 13, 2025 Time Sepsis recognized/suspect: 135 Recent Procedure: No On Antibiotic Therapy: No Respiratory Rate >20: No Heart Rate >90: No Temp<36 C (96.8 F) or >38.3 C: No SBP <90 or MAP <65 mmHG: No New Acute Mental Status Change: No Is the patient on CPAP, BIPAP,: No Physician Orders Electrocardigram (01/13/25 02:52) Head Without Contrast (01/13/25 02:02) Cervical Without Contrast (01/13/25 02:02) Urinalysis (01/13/25 02:02) Test, Urine (01/13/25 02:02) Chest Xray 1 View (01/13/25 03:40) Vital Signs Date Time Temp Pulse Resp B/P (MAP) Pulse Ox O2 Delivery O2 Flow Rate FiO2 01/13/25 02:15 118 01/13/25 01:45 119 01/13/25 01:36 98.8 109 18 121/80 100 98.8 Laboratory Tests Test 01/13/25 02:23 White Blood Count 6.0 10^3/uL (4.4-10.8) Medications Medications Dose Ordered Sig/Janny Route Start Time Stop Time Status Last Admin Dose Admin Acetaminophen/ Hydrocodone Bitart 1 tab ONCE ONCE PO 01/13/25 02:45 01/13/25 02:46 DC 01/13/25 02:57 Departure 1 Departure Time of Disposition: 03:57 Impression: Primary Impression: Syncope and collapse Additional Impression: Intractable back pain Disposition: ADMITTED INPATIENT Admit to: Med Surg Condition: Guarded Discharged With: Self Comments 34-year-old female with history of chronic back pain now complains of severe back pain and headache after she passed out in the drug store while standing in line. Patient states that she bumped her head on the ground. Patient states that she is having a hard time ambulating at home due to the back pain and is requesting to be admitted for pain control and further workup Critical Care Note Critical Care Time?: No Stability Stability form required: No Heart Score Heart Score: Heart Score Response (Comments) Value History N/A 0 EKG N/A 0 Age N/A 0 Risk Factors N/A 0 Troponin N/A 0 Total 0 I personally scribed for MIGUEL A OBANDO MD ([email or web address]) on 01/13/25 at 02:15. Electronically submitted by Ricardo Forbes [email or web address]). MIGUEL A OBANDO MD Jan 13, 2025 02:15
[2025-01-13 02:49] LABS: Hemoglobin 11.5 g/dL (12.2-16.2); Mean Corpuscular Volume 81.1 fL (80.0-100.0); Nucleated Red Blood Cells % 0.0 %
[2025-01-13 02:50] LABS: Hematocrit 34.5 % (36.0-46.0); Mean Corpuscular Hemoglobin 27.0 pg (28.0-32.0)
[2025-01-13] MEDS: HYDROcodone-ACET 10/325MG TAB PO ONE (02:57)
[2025-01-13 03:04] LABS: Albumin 4.8 g/dL (3.2-4.8); Alkaline Phosphatase 76 U/L (46-116); Anion Gap 11 (5-15); BUN/Creatinine Ratio 15.2 (10.0-20.0); Blood Urea Nitrogen 12 mg/dL (9-23); Calcium 9.4 mg/dL (8.7-10.4); Carbon Dioxide 22 mmol/L (20-31); Chloride 105 mmol/L (98-107); Glucose 97 mg/dL (74-106); Magnesium 1.9 mg/dL (1.6-2.6); Sodium 138 mmol/L (136-145); Total Protein 7.4 g/dL (5.7-8.2)
[2025-01-13 03:05] LABS: Bilirubin, Total 0.5 mg/dL (0.2-1.0)
--- NOTE | 2025-01-13 03:16 | DVH ---
Indication: syncope, head injury Comparison: None Technique: Utilizing a multislice CT scanner, a CT scan of the brain was performed without intravenou s contrast. Coronal and sagittal reformatted images. All CT scans at this facility use dose modulation, iterative reconstruction, and/or weight based dosi ng when appropriate to reduce radiation dose to as low as reasonably achievable. Findings: There is no acute infarct, intracranial hemorrhage, or mass effect. There is no hydrocephalus or sign ificant midline shift. No acute, depressed calvarial fractures. No large scalp hematomas. Impression: 1. No acute intracranial process.
--- NOTE | 2025-01-13 03:18 | DVH ---
EXAM: CT CERVICAL WITHOUT CONTRAST INDICATION: pain s/p fall EXAM DATE: 01/13/2025 02:19 AM COMPARISON: None TECHNIQUE: Multiple axial CT images of the cervical spine were obtained using bone algorithm. Axial a nd coronal reformatting was done. Bone and soft tissue windows were reviewed. Dose-length product is 1185 mGy*cm FINDINGS: No acute compression deformity, fracture, or subluxation. No foraminal stenosis or central canal stenosis. The prevertebral soft tissues are not thickened. Thyroid is unremarkable. Limited sections of the lung apices demonstrate no pneumothorax. IMPRESSION: 1. No acute compression fractures or subluxation.
[2025-01-13 03:27] LABS: Alanine Aminotransferase < 9 U/L (7-40); Potassium 3.4 mmol/L (3.5-5.1)
[2025-01-13 04:26] LABS: Urine Protein, UAD 2+ (Negative)
--- NOTE | 2025-01-13 04:43 | DVH ---
CHEST RADIOGRAPH Indication: SOB Technique: Single frontal view of the chest was obtained Comparison: XY CHEST PORTABLE on DOS: 09/30/24 FINDINGS: Lines and Tubes: None Lungs: No focal consolidation. Pleura: No effusion. No pneumothorax. Cardiomediastinal contours: Unremarkable Bones: No acute osseous abnormality. IMPRESSION: 1. No acute cardiopulmonary disease.
[2025-01-13] MEDS ORDERED: NITROGLYCERIN 0.4 MG SL TAB SL PRN (05:00)
[2025-01-13] MEDS ORDERED: HYDROcodone-ACET 5/325MG TAB PO PRN (05:00)
[2025-01-13] MEDS ORDERED: ACETAMINOPHEN 325 MG TAB PO PRN (05:00)
[2025-01-13] MEDS ORDERED: MORPHINE SULFATE INJ 2 MG/ml SYRG IV PRN ×2 (05:00→17:30)
--- NOTE | 2025-01-13 05:00 | DVHHP2 ---
History of Present Illness Reason for Visit: Syncope History of Present Illness 34-year-old female presents for evaluation of syncopal episode. Patient reports having two syncopal episodes yesterday. She states feeling dizzy prior to the event and then waking up in the floor. She states that after the event she develops chest pain. No shortness a breath. Denies head trauma. She also reports having back pain. Past Medical History Denies Past Surgical History Bariatric surgery, Family History Noncontributory Smoke: No ALCOHOL: none Drugs: None Lives: with Family Review of Systems Review of Systems Review of systems are currently negative otherwise addressed in HPI. Allergies: Coded Allergies: Latex (Verified Allergy, Unknown, 09/30/24) Medications Current Medications Medications Dose Ordered Sig/Janny Route Start Time Stop Time Status Last Admin Dose Admin Sodium Chloride 1 spr QID EACHNOSTRI 01/13/25 06:00 UNV Exam Vital Signs Vital Signs Date Time Temp Pulse Resp B/P (MAP) Pulse Ox O2 Delivery O2 Flow Rate FiO2 01/13/25 02:15 118 01/13/25 01:36 98.8 18 121/80 100 98.8 Exam Gen: 34-year-old female in mild distress Skin: Warm, dry, normal color and texture, no rash. HEENT: Normocephalic atraumatic, mucous membranes moist and pink. Neck: Cervical and supraclavicular nodes normal without enlargement, trachea is midline, thyroid gland is normal without masses. Pulmonary: Clear to auscultation and percussion bilaterally. Cardiac: Regular rate and rhythm. No murmur Abdomen: Soft, nontender, nondistended, bowel sounds present all 4 quadrants, no guarding, no rigidity, no organomegaly. Extremities: No cyanosis, clubbing, no edema Neuro: Cranial nerves II through XII grossly intact, normal affect and speech, no focal motor deficits. Labs/Xrays ORDERING PHYSICIAN: MIGUEL A OBANDO MD PROCEDURE(s): CS2 - CERVICAL WITHOUT CONTRAST REASON: pain s/p fall ORDER NUMBER(s): [id number], ACCESSION NUMBER(s): [id number] EXAM: CT CERVICAL WITHOUT CONTRAST INDICATION: pain s/p fall EXAM DATE: 01/13/2025 02:19 AM COMPARISON: None TECHNIQUE: Multiple axial CT images of the cervical spine were obtained using bone algorithm. Axial and coronal reformatting was done. Bone and soft tissue windows were reviewed. Dose-length product is 1185 mGy*cm FINDINGS: No acute compression deformity, fracture, or subluxation. No foraminal stenosis or central canal stenosis. The prevertebral soft tissues are not thickened. Thyroid is unremarkable. Limited sections of the lung apices demonstrate no pneumothorax. IMPRESSION: 1. No acute compression fractures or subluxation. RING PHYSICIAN: MIGUEL A OBANDO MD PROCEDURE(s): HWOCT - HEAD WITHOUT CONTRAST REASON: syncope, head injury ORDER NUMBER(s): [id number], ACCESSION NUMBER(s): [id number] Indication: syncope, head injury Comparison: None Technique: Utilizing a multislice CT scanner, a CT scan of the brain was performed without intravenous contrast. Coronal and sagittal reformatted images. All CT scans at this facility use dose modulation, iterative reconstruction, an d/or weight based dosing when appropriate to reduce radiation dose to as low as reasonably achievable. Findings: There is no acute infarct, intracranial hemorrhage, or mass effect. There is no hydrocephalus or significant midline shift. No acute, depressed calvarial fractures. No large scalp hematomas. Impression: 1. No acute intracranial process. RING PHYSICIAN: MIGUEL A OBANDO MD PROCEDURE(s): CXR1 - CHEST XRAY 1 VIEW REASON: SOB ORDER NUMBER(s): [id number], ACCESSION NUMBER(s): [id number] CHEST RADIOGRAPH Indication: SOB Technique: Single frontal view of the chest was obtained Comparison: XY CHEST PORTABLE on DOS: 09/30/24 FINDINGS: Lines and Tubes: None Lungs: No focal consolidation. Pleura: No effusion. No pneumothorax. Cardiomediastinal contours: Unremarkable Bones: No acute osseous abnormality. IMPRESSION: 1. No acute cardiopulmonary disease. Labs Test 01/13/25 02:30 01/13/25 02:23 Range/Units Urine Color Brown H Yellow Urine Clarity Turbid H Clear Urine pH 5.5 5.0-9.0 Urine Specific [place] 1.030 1.001-1.035 Urine Protein 2+ H Negative Urine Ketones 1+ H Negative Urine Blood 3+ H Negative /uL Urine Nitrite Negative Negative Urine Bilirubin Negative Negative Urine Urobilinogen Normal Negative mg/dL Urine Leukocyte Esterase 2+ Negative /uL Urine RBC 36 0 - 4 /hpf Urine Microscopic WBC 56 H 0-5 /HPF Urine Squamous Epithelial Cells Mod <5 /hpf Urine Bacteria Few H None Seen /hpf Urine Mucus Few None Seen Urine Glucose Normal Normal mg/dL Urine Test Negative Negative White Blood Count 6.0 4.4-10.8 10^3/uL Red Blood Count 4.25 4.0-5.20 10^6/uL Hemoglobin 11.5 L 12.2-16.2 g/dL Hematocrit 34.5 L 36.0-46.0 % Mean Corpuscular Volume 81.1 80.0-100.0 fL Mean Corpuscular Hemoglobin 27.0 L 28.0-32.0 pg Mean Corpuscular Hemoglobin Concent 33.3 32.0-36.0 g/dL Red Cell Distribution Width 16.4 H 11.8-14.3 % Platelet Count 322 140-450 10^3/uL Mean Platelet Volume 8.2 6.9-10.8 fL Neutrophils (%) (Auto) 87.5 H 37.0-80.0 % Lymphocytes (%) (Auto) 6.7 L 10.0-50.0 % Monocytes (%) (Auto) 5.1 0.0-12.0 % Eosinophils (%) (Auto) 0.2 0.0-7.0 % Basophils (%) (Auto) 0.5 0.0-2.0 % Neutrophils # (Auto) 5.2 1.6-8.6 10 ^3/uL Lymphocytes # (Auto) 0.4 0.4-5.4 10 ^3/uL Monocytes # (Auto) 0.3 0-1.3 10 ^3/uL Eosinophils # (Auto) 0 0-0.8 10 ^3/uL Basophils # (Auto) 0 0-0.2 10 ^3/uL Nucleated Red Blood Cells 0.0 % Sodium Level 138 136-145 mmol/L Potassium Level 3.4 L 3.5-5.1 mmol/L Chloride Level 105 98-107 mmol/L Carbon Dioxide Level 22 20-31 mmol/L Anion Gap 11 5-15 Blood Urea Nitrogen 12 9-23 mg/dL Creatinine 0.79 0.550-1.02 mg/dL Glomerular Filtration Rate Calc 101 >90 mL/min BUN/Creatinine Ratio 15.2 10.0-20.0 Serum Glucose 97 74-106 mg/dL Calcium Level 9.4 8.7-10.4 mg/dL Magnesium Level 1.9 1.6-2.6 mg/dL Total Bilirubin 0.5 0.2-1.0 mg/dL Aspartate Amino Transferase (AST) 11 L 13-40 U/L Alanine Aminotransferase (ALT) < 9 7-40 U/L Alkaline Phosphatase 76 46-116 U/L Total Protein 7.4 5.7-8.2 g/dL Albumin 4.8 3.2-4.8 g/dL SEPSIS Sepsis Screen Date sepsis recognized/suspect: Jan 13, 2025 Time Sepsis recognized/suspect: 135 Recent Procedure: No On Antibiotic Therapy: No Respiratory Rate >20: No Heart Rate >90: No Temp<36 C (96.8 F) or >38.3 C: No SBP <90 or MAP <65 mmHG: No New Acute Mental Status Change: No Is the patient on CPAP, BIPAP,: No Physician Orders Electrocardigram (01/13/25 02:52) Head Without Contrast (01/13/25 02:02) Cervical Without Contrast (01/13/25 02:02) Chest Xray 1 View (01/13/25 03:40) Saline ([place] Nasal [place]) (01/13/25 06:00) Troponin-I Hs (01/13/25 04:48) Troponin-I Hs (01/13/25 05:48) Troponin-I Hs (01/13/25 07:48) Urine Bacterial Culture (01/13/25 04:48) Ceftriaxone 1gm/50ml D5w (Rocephin) (01/13/25 09:00) Baclofen Tablet (Liorisal Tablet) (01/13/25 05:00) Ketorolac Injection (Toradol Injection) (01/13/25 05:00) Basic Metabolic Panel (01/14/25 04:00) * Cardiology Consult (01/13/25 04:48) Admit (01/13/25 04:48) Hydrocodone-Acet 5/325mg Tab ([place] 5/32 (01/13/25 05:00) Ondansetron Hcl (Zofran) (01/13/25 05:00) Echo 2d Mode Cardiac Dop (01/13/25 04:48) Carotid Duplx W Color Dop (01/13/25 04:48) Condition: Fair (01/13/25 04:48) Acetaminophen Tablet (Tylenol Tablet) (01/13/25 05:00) Bedrest With Bathroom Privileg (01/13/25 04:48) Nitroglycerin Sublingual (Ntrostat Subli (01/13/25 05:00) Morphine Sulfate Injection (01/13/25 05:00) Stat Ekg For Chest Pain (01/13/25 04:48) Notify Md Of Changes From Base (01/13/25 04:48) School Child Care Attendant For 24 Hours (01/13/25 04:48) Emergency Dysrhythmia Protocol (01/13/25 04:48) Rhythm Strips Once Every Shift (01/13/25 04:48) Oxygen By Nasal Cannula (01/13/25 04:48) Vital Signs Date Time Temp Pulse Resp B/P (MAP) Pulse Ox O2 Delivery O2 Flow Rate FiO2 01/13/25 02:15 118 01/13/25 01:45 119 01/13/25 01:36 98.8 109 18 121/80 100 98.8 Laboratory Tests Test 01/13/25 02:23 White Blood Count 6.0 10^3/uL (4.4-10.8) Medications Medications Dose Ordered Sig/Janny Route Start Time Stop Time Status Last Admin Dose Admin Acetaminophen/ Hydrocodone Bitart 1 tab ONCE ONCE PO 01/13/25 02:45 01/13/25 02:46 DC 01/13/25 02:57 1 TAB Assessment/Plan Assessment/Plan Assessment Syncope Acute cystitis Chronic pain syndrome Plan Admit the patient to telemetry to the hospitalist Cardiology consultation Echocardiogram/carotid ultrasound pending Rocephin Pain management Continue treatment per orders. Plan discussed with: Patient My Orders Orders - JOSHUA SNOWCNSudeep Procedure Category Date Status Time Saline ([place] Nasal PHA 01/13/25 Logged [place]) 06:00 Troponin-I Hs LAB 01/13/25 Logged 04:48 Troponin-I Hs LAB 01/13/25 Logged 05:48 Troponin-I Hs LAB 01/13/25 Logged 07:48 Urine Bacterial NKECHI 01/13/25 Logged Culture 04:48 Ceftriaxone 1gm/50ml PHA 01/13/25 Logged D5w (Rocephin) 09:00 Baclofen Tablet PHA 01/13/25 Logged (Liorisal Tablet) 05:00 Ketorolac Injection PHA 01/13/25 Transmitted (Toradol Injection) 05:00 Basic Metabolic Panel LAB 01/14/25 Verified 04:00 * Cardiology Consult CONS 01/13/25 Transmitted 04:48 Admit ADMIT 01/13/25 Transmitted 04:48 Hydrocodone-Acet PHA 01/13/25 Transmitted 5/325mg Tab ([place] 05:00 Ondansetron Hcl PHA 01/13/25 Transmitted (Zofran) 05:00 Echo 2d Mode Cardiac US 01/13/25 Logged DOP 04:48 Carotid Duplx W Color US 01/13/25 Logged DOP 04:48 Condition: Fair [facility] 01/13/25 In Process 04:48 Acetaminophen Tablet [facility] 01/13/25 Transmitted (Tylenol Tablet) 05:00 Bedrest With Bathroom [facility] 01/13/25 In Process Privileg 04:48 Nitroglycerin PHA 01/13/25 Transmitted Sublingual (Ntrostat 05:00 Morphine Sulfate PHA 01/13/25 Transmitted Injection 05:00 Stat Ekg For Chest [facility] 01/13/25 In Process Pain 04:48 Notify Md Of Changes [facility] 01/13/25 In Process From Base 04:48 School Child Care Attendant For [facility] 01/13/25 In Process 24 Hours 04:48 Emergency Dysrhythmia [facility] 01/13/25 In Process Protocol 04:48 Rhythm Strips Once [facility] 01/13/25 In Process Every Shift 04:48 Oxygen By Nasal RT 01/13/25 Transmitted Cannula 04:48 Date of Service: Jan 13, 2025 Billing Provider: JOSHUA SNOW Common Visit Codes: [id number] INP/OBS CARE (HIGH) JOSHUA SNOW Jan 13, 2025 05:00
[2025-01-13] MEDS: KETOROLAC TROMETH 30 MG/ML 1ML VIAL IV PRN (05:49)
[2025-01-13] MEDS: SALINE 0.65 % NASAL SPRAY 45ML BOTTLE EACHNOSTRI SCH (05:51)
[2025-01-13 07:54] VITALS: RESP 16
--- NOTE | 2025-01-13 08:12 | DVHPNRES ---
Progress Note Date Seen: Jan 13, 2025 Resident Creating Document: KOURTNEY TESFAYE RESIDENT Medical Necessity Reason Pt with a Central, PICC or Fol: No Subjective Review of Systems Tasha Rodriguez is a 34-year-old female past medical history of chronic back pain due to lumbar spinal stenosis, complained to the ER with chief complain of syncope twice yesterday. She reported losing consciousness at [facility] while waiting in the line, she gained consciousness and was feeling warm to touch and heart rate was high. She reported going back to home and losing consciousness while in the shower. She reported hitting head twice. Also complained of sore throat since 2 days, both her children are sick with similar symptoms. She has chronic numbness and tingling in her right leg, dizziness on standing up. She follows with Neurology specialist in [place]. Home medication: Zepbound, [place] Allergic history: latex ROS: Constitutional: Denies weight loss, fever and chills. HEENT: Sore throat, coughing Respiratory: Denies shortness of breath and cough Cardiovascular: Denies chest discomfort or palpitations GI: Denies abdominal pain, nausea, vomiting and diarrhea. : Denies dysuria and urinary frequency. Musculoskeletal: Back pain, numbness and tingling in right leg Skin: Denies rash and pruritus. Neurological: Syncope 01/13/2025: She was examined at bedside today. Vitals stable. Continues to complain of pain in her back extending from her neck to lower back. She reported taking [place] at home but says she does not want Tylenol for pain control. She denies morphine, [place], Toradol, Tylenol for pain relief. Objective vital signs Vital Sign Date Time Temp Pulse Resp B/P (MAP) Pulse Ox O2 Delivery O2 Flow Rate FiO2 01/13/25 07:54 16 Room Air* 0 21 01/13/25 06:04 97.8 88 99/63 (75) 100 97.8 medications Current Medications Medications Dose Ordered Sig/Janny Route Start Time Stop Time Status Last Admin Dose Admin Sodium Chloride 1 spr QID EACHNOSTRI 01/13/25 06:00 01/13/25 05:51 1 SPR Ceftriaxone Sodium 50 ml @ 100 mls/hr DAILY@09 IV 01/13/25 09:00 Baclofen 5 mg Q8HP PRN PO 01/13/25 05:00 Ketorolac Tromethamine 15 mg Q6HPRN PRN IV 01/13/25 05:00 01/18/25 04:59 01/13/25 05:49 15 MG Acetaminophen/ Hydrocodone Bitart 1 tab Q4HP PRN PO 01/13/25 05:00 Ondansetron HCl 4 mg Q4HP PRN IV 01/13/25 05:00 Acetaminophen 650 mg Q6HP PRN PO 01/13/25 05:00 Nitroglycerin 0.4 mg Q5MINP PRN SL 01/13/25 05:00 Morphine Sulfate 2 mg Q30M PRN IV 01/13/25 05:00 Examination General: Patient alert and oriented in person, place and time. Patient following commands. HEENT: Pain on neck flexion, tenderness in cervical spine to lumbar spine on palpation Respiratory/pulmonary: Clear lungs bilaterally, vesicular murmurs present in almost all lung cruz, no associated crackles or wheezes. Cardiovascular: Normal heart sounds S1 and S2 with no associated murmurs Abdomen: Abdomen nondistended, there is no pain to palpation in any of the abdominal quadrants, no palpable masses. Extremities: There is no peripheral edema present at the lower extremities. Peripheral Pulses: 3+ Radial (R). 3+ Radial (L). 3+ Dorsalis pedis (R). 3+ Dorsalis pedis(L) Skin: No rashes or pruritus, there is no sacral edema present at this time. Neurological: Intact cranial nerves with no focal neurologic deficits laboratory and microbiology Laboratory Tests 01/13/25 02:23 Test 01/13/25 02:23 Range/Units Serum Glucose 97 74-106 mg/dL Problem List/Assessment/Plan Problem List/Assessment/Plan Syncope, rule out cardiac causes Orthostatic syncope, possible Carotid artery stenosis, ruled out Hemorrhagic stroke/space-occupying HEAD ORTHOPEDIC TEAM PHYSICIAN lesion, ruled out Generalized seizure, ruled out clinically Trivial pericardial effusion, echo finding CXR shows no acute cardiopulmonary disease CT head Revealed no acute intracranial pathology Cervical spine CT without contrast revealed no acute compression fractures or subluxation Tachycardia on arrival EKG revealed sinus tachycardia, borderline T-wave abnormalities Troponin WNL Toxicology negative Echo-LVEF 65% Flu-like symptoms, acute COVID-19 Chronic pain syndrome Offered pain management, Denies Tylenol, Toradol, [place], morphine for pain relief Hypokalemia Potassium supplemented Normocytic, normochromic anemia, unspecified Syncope Cystitis, ruled out DIET: Cardiac DVT prophylaxis: Sequential compression device PUD prophylaxis: Protonix CODE STATUS: Goals of care discussed with patient at bedside for more than 35 minutes. Full code DISPOSITION: Med/surge Patient's status and plan discussed with the patient. Case discussed with Dr. Ospina. Plan discussed with: Patient Date of Service: Jan 13, 2025 Billing Provider: TALAT OSPINA MD Common Visit Codes: [id number] INP/OBS CARE(HIGH) KOURTNEY TESFAYE RESIDENT Jan 13, 2025 08:12 TALAT OSPINA MD Jan 14, 2025 23:20
[2025-01-13 08:21] LABS: Amphetamine Screen, Urine Neg (NEGATIVE)
[2025-01-13 08:38] LABS: Barbiturate Scree,Urine Neg (NEGATIVE); Benzodiazephine Screen, Urine Neg (NEGATIVE); Cannabinoid Screen, Urine Neg (NEGATIVE); Cocaine Screen, Urine Neg (NEGATIVE); Opiate Scree,Urine Neg (NEGATIVE); Phencyclidine Screen, Urine Neg (NEGATIVE)
--- NOTE | 2025-01-13 08:47 | DVH ---
Carotid Duplex Date: 01/13/2025 07:16 AM Clinical History: syncope Comparison: None Technique: Duplex Doppler evaluation of the extracranial carotid and vertebral arteries including col or Doppler and spectral/pulsed waveform analysis was performed. Findings: Velocities and ratios within normal limits IMPRESSION: No hemodynamically significant stenosis noted in the right carotid system. No hemodynamically significant stenosis noted in the left carotid system. Reference:Radiology 2003; [id number]
[2025-01-13] MEDS: POTASSIUM CHL 20 Meq TABLET PO ONE (09:09)
[2025-01-13] MEDS: ONDANSETRON HCL 4 MG/2 ML VIAL IV PRN (09:09)
[2025-01-13] MEDS: MORPHINE SULFATE INJ 2 MG/ml SYRG IV ONE ×2 (09:11→18:21)
[2025-01-13] MEDS: cefTRIAXone 1GM/50ML D5W 50 ML IV SCH (09:11)
--- NOTE | 2025-01-13 09:13 | DVHINCON2 ---
RAMSEY BERNSTEIN [facility] 01/13/25 0913: Date Seen: Jan 13, 2025 Referring Physician FLACO Mckeon Reason for Consultation Syncope History of Present Illness This is a pleasant 34-year-old female who presented to the emergency room with a chief complaint of syncopal events. The patient reports she awoke yesterday with flu-like symptoms including a stuffy nose, sore throat, and myalgia prompting her to attend a local urgent care clinic where she was prescribed a steroid dose pack, an antihistamine, an antiinflammatory, and oseltamivir. O ther sick contacts includes her children at home. Once she presented to the pharmacy to fill the Rx, she felt a sudden onset of dizziness and lightheadedness with a subsequent syncopal event lasting a few seconds. She was assisted by pharmacy staff who called 911. She was recommended to be transported to the nearest emergency room which she declined at that time. She then went home and within 30 min of first event, she was taking a shower when she had a second syncopal event with no reported pre-syncopal symptoms which prompted her to seek further medical attention. Denies urinary incontinence or oral trauma. Denies chest pain, palpitations, diaphoresis, or SOB. Upon arrival to the emergency room, she underwent a 12 lead electrocardiogram revealing a sinus tachycardia rhythm at 118 bpm with no evidence of ST-T wave changes, AV blocks, sinus pauses, or suggestions of channelopathies. Serial troponin levels are negative. 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 Past Medical History Past medical history reviewed. No other significant than mentioned above. Past Surgical History Gastric sleeve, 01/10/2024 C-sections x4 Family History: Diabetes mellitus G8 MOTHER FH: heart disease G8 MOTHER Hypertension G8 MOTHER Family History Family history reviewed. Social History Denies the use of illicit drugs, alcohol, or tobacco use. Allergies: Coded Allergies: Latex (Verified Allergy, Unknown, 09/30/24) Home Meds Active Scripts Doxycycline (Monohydrate) (Doxycycline) 100 Mg Cap, 100 MG PO BID for 7 Days, #14 CAP 0 Refills Prov:MUSA LANDIS MD 10/06/24 Calcium Polycarbophil (Fiber Tabs) 625 Mg Tab, 625 MG PO BID for 14 Days, #28 TAB 0 Refills Prov:MUSA LANDIS MD 10/06/24 Polyethylene Glycol 3350 (Gavilax) 17 Gm/Scoop Pow, 17 GM PO DAILY for 7 Days, #7 POW 0 Refills Prov:MUSA LANDIS MD 10/06/24 Docusate Sodium (Colace) 100 Mg Cap, 1 CAP PO BID, #60 CAP 0 Refills Prov:MUSA LANDIS MD 10/06/24 Cyclobenzaprine HCl (Cyclobenzaprine Hydrochlo) 10 Mg Tab, 10 MG PO TIDP PRN for 7 Days, #30 TAB 0 Refills Prov:MUSA LANDIS MD 10/06/24 Hydrocodone-Acetaminophen (Hydrocodone Bitartrate/AC 10-325 mg) 1 Tab Tab, 1 TAB PO TIDP PRN for 6 Days, #20 TAB 0 Refills Prov:MUSA LANDIS MD 10/06/24 Reported Medications Nystatin (Mycostatin) 1 Applic Ap, TOP BID 09/30/24 Triamcinolone Acetonide (Kenalog) 1 Applic Ap, TOP BID 09/30/24 Lidocaine-Prilocaine (Agoneaze 2.5-2.5 %) 1 Kit Kit 09/30/24 Lidocaine (Lidocaine) 5 % Pad, 2 PATCH TOP Q12HR 09/30/24 Hydrocodone-Acetaminophen (Hydrocodone/Acetaminophen 5-325 mg) 1 Tab Tab, 1 TAB PO BID PRN for PAIN SCALE 7 THRU 10 09/30/24 Home Meds Home medications reviewed. Current Medications Current Medications Medications (Trade) Dose Ordered Sig/Janny Route PRN Reason Start Time Stop Time Status Last Admin Sodium Chloride ([place] Nasal Cavalier) 1 spr QID EACHNOSTRI 01/13/25 06:00 01/13/25 05:51 Ceftriaxone Sodium 50 ml @ 100 mls/hr DAILY@09 IV 01/13/25 09:00 Baclofen (Liorisal Tablet) 5 mg Q8HP PRN PO FOR MUSCLE SPASM 01/13/25 05:00 Ketorolac Tromethamine (Toradol Injection) 15 mg Q6HPRN PRN IV SEVERE PAIN (7-10 PAIN SCALE) 01/13/25 05:00 01/18/25 04:59 01/13/25 05:49 Acetaminophen/ Hydrocodone Bitart ([place] 5/325MG Tab) 1 tab Q4HP PRN PO MODERATE PAIN (4-6 PAIN SCALE) 01/13/25 05:00 Ondansetron HCl (Zofran) 4 mg Q4HP PRN IV NAUSEA / VOMITING 01/13/25 05:00 Acetaminophen (Tylenol Tablet) 650 mg Q6HP PRN PO PAIN SCALE 1-3 OR TEMP>100.4 01/13/25 05:00 Nitroglycerin (Ntrostat Sublingual) 0.4 mg Q5MINP PRN SL FOR CHEST PAIN 01/13/25 05:00 Morphine Sulfate 2 mg Q30M PRN IV FOR CHEST PAIN 01/13/25 05:00 Review of Systems Constitutional: No symptom reported Ears, Nose, & Throat: No symptom reported Eyes: No symptom reported Neurological: Syncope Pulmonary/Respiratory: No symptom reported Cardiovascular: No symptom reported Gastrointestinal: No symptom reported Genitourinary: No symptom reported Musculoskeletal: No symptom reported Skin: No symptom reported Psychiatric: No symptom reported Endocrine: No symptom reported Hemotologic/Lymphatic: No symptom reported Vital Signs Vital Signs Date Time Temp Pulse Resp B/P (MAP) Pulse Ox O2 Delivery O2 Flow Rate FiO2 01/13/25 08:52 98.6 84 14 110/71 (84) 98 98.6 01/13/25 07:54 Room Air* 0 21 Physical Exam General Appearance: Cooperative. Well developed. Well nourished. In no acute distress Head Exam: Normal inspection Neck Exam: Normal inspection. Non-tender. Normal alignment Pulmonary/Respiratory: Chest non-tender. Clear bilateral breath sounds Cardiovascular/Chest: Regular rate and rhythm. S1, S2. Sinus rhythm. No murmurs. No JVD. Peripheral Pulses: 2+ Radial (R). 2+ Radial (L). 2+ Pedal (R). 2+ Pedal (L) Abdominal Exam: Normal bowel sounds. Soft. Nontender. No hepatospenomegaly. No masses Ankle Exam: Negative ankle edema Lower extremities: Negative lower extremity edema Neuro/Mental Status: A&O x4. Coherent Thoughts/Psych: Normal thought pattern. Appropriate mood and affect. Good judgement and insight Appearance: In no acute distress Skin Exam: Normal inspection. Normal color. Warm. Dry Labs/Diagnostic Data Labs Test 01/13/25 05:59 8/19/25 02:30 01/13/25 02:23 Range/Units Troponin I High Sensitivity < 3 L </=34 ng/L Thyroid Stimulating Hormone (TSH) 3.43 0.55-4.78 uIU/mL Plasma/Serum Blood Alcohol < 3.0 <10 mg/dL Urine Color Brown H Yellow Urine Clarity Turbid H Clear Urine pH 5.5 5.0-9.0 Urine Specific [place] 1.030 1.001-1.035 Urine Protein 2+ H Negative Urine Ketones 1+ H Negative Urine Blood 3+ H Negative /uL Urine Nitrite Negative Negative Urine Bilirubin Negative Negative Urine Urobilinogen Normal Negative mg/dL Urine Leukocyte Esterase 2+ Negative /uL Urine RBC 36 0 - 4 /hpf Urine Microscopic WBC 56 H 0-5 /HPF Urine Squamous Epithelial Cells Mod <5 /hpf Urine Bacteria Few H None Seen /hpf Urine Mucus Few None Seen Urine Glucose Normal Normal mg/dL Urine Test Negative Negative Urine Opiates Screen Neg NEGATIVE Urine Fentanyl Screen Neg NEGATIVE Urine Barbiturates Screen Neg NEGATIVE Urine Phencyclidine Screen Neg NEGATIVE Urine Amphetamines Screen Neg NEGATIVE Urine Benzodiazepines Screen Neg NEGATIVE Urine Cocaine Screen Neg NEGATIVE Urine Cannabinoids Screen Neg NEGATIVE White Blood Count 6.0 4.4-10.8 10^3/uL Red Blood Count 4.25 4.0-5.20 10^6/uL Hemoglobin 11.5 L 12.2-16.2 g/dL Hematocrit 34.5 L 36.0-46.0 % Mean Corpuscular Volume 81.1 80.0-100.0 fL Mean Corpuscular Hemoglobin 27.0 L 28.0-32.0 pg Mean Corpuscular Hemoglobin Concent 33.3 32.0-36.0 g/dL Red Cell Distribution Width 16.4 H 11.8-14.3 % Platelet Count 322 140-450 10^3/uL Mean Platelet Volume 8.2 6.9-10.8 fL Neutrophils (%) (Auto) 87.5 H 37.0-80.0 % Lymphocytes (%) (Auto) 6.7 L 10.0-50.0 % Monocytes (%) (Auto) 5.1 0.0-12.0 % Eosinophils (%) (Auto) 0.2 0.0-7.0 % Basophils (%) (Auto) 0.5 0.0-2.0 % Neutrophils # (Auto) 5.2 1.6-8.6 10 ^3/uL Lymphocytes # (Auto) 0.4 0.4-5.4 10 ^3/uL Monocytes # (Auto) 0.3 0-1.3 10 ^3/uL Eosinophils # (Auto) 0 0-0.8 10 ^3/uL Basophils # (Auto) 0 0-0.2 10 ^3/uL Nucleated Red Blood Cells 0.0 % Sodium Level 138 136-145 mmol/L Potassium Level 3.4 L 3.5-5.1 mmol/L Chloride Level 105 98-107 mmol/L Carbon Dioxide Level 22 20-31 mmol/L Anion Gap 11 5-15 Blood Urea Nitrogen 12 9-23 mg/dL Creatinine 0.79 0.550-1.02 mg/dL Glomerular Filtration Rate Calc 101 >90 mL/min BUN/Creatinine Ratio 15.2 10.0-20.0 Serum Glucose 97 74-106 mg/dL Calcium Level 9.4 8.7-10.4 mg/dL Magnesium Level 1.9 1.6-2.6 mg/dL Total Bilirubin 0.5 0.2-1.0 mg/dL Aspartate Amino Transferase (AST) 11 L 13-40 U/L Alanine Aminotransferase (ALT) < 9 7-40 U/L Alkaline Phosphatase 76 46-116 U/L Total Protein 7.4 5.7-8.2 g/dL Albumin 4.8 3.2-4.8 g/dL Assessment Flu-like symptoms r/o influenza/COVID-19 Syncope and collapse possibly secondary to above Borderline hypokalemia Iron deficiency anemia Plan/Recommendation (Dr. Guzmán) The patient presents with flu-like symptoms likely to be the culprit of symptoms. A head CT, chest x-ray, and carotid duplex are all unremarkable. Replete electrolytes as necessary. Collect influenza and COVID-19 swabs. In the setting of an unremarkable transthoracic echocardiogram, there is no further cardiac workup indicated at this time. She can benefit from an outpatient event monitor if deemed to be necessary, nevertheless there are no cardiac arrhythmias or channelopathies suspected at this time. Kindly call if you need to re- consult. Thank you for allowing us to participate in this patient's care. This medical document was created using an electronic medical record system with voice recognition software and computerized dictation system. Although this document has been carefully reviewed, there might still be some phonetic and typographical errors. Occasional wrong-word or ``sound-alike substitutions may have occurred due to the inherent limitations of voice recognition software. These areas are purely typographical due to imperfections of the software programs and do not reflect any compromise in the patient's medical care. Please read the chart carefully and recognize, using context, where these substitutions have occurred. Plan discussed with: Patient, Other NYHA Physical activity limitations: NA Date of Service: Jan 13, 2025 Billing Provider: RAMSEY BERNSTEIN [employer] OPERATOR Cardiology Common Codes: [id number] INP/OBS CARE (High) DRE GUZMÁN MD 01/13/25 1620: Family History: Diabetes mellitus G8 MOTHER FH: heart disease G8 MOTHER Hypertension G8 MOTHER Allergies: Coded Allergies: Latex (Verified Allergy, Unknown, 09/30/24) Home Meds Active Scripts Doxycycline (Monohydrate) (Doxycycline) 100 Mg Cap, 100 MG PO BID for 7 Days, #14 CAP 0 Refills Prov:MUSA LANDIS MD 10/06/24 Calcium Polycarbophil (Fiber Tabs) 625 Mg Tab, 625 MG PO BID for 14 Days, #28 TAB 0 Refills Prov:MUSA LANDIS MD 10/06/24 Polyethylene Glycol 3350 (Gavilax) 17 Gm/Scoop Pow, 17 GM PO DAILY for 7 Days, #7 POW 0 Refills Prov:MUSA LANDIS MD 10/06/24 Docusate Sodium (Colace) 100 Mg Cap, 1 CAP PO BID, #60 CAP 0 Refills Prov:MUSA LANDIS MD 10/06/24 Cyclobenzaprine HCl (Cyclobenzaprine Hydrochlo) 10 Mg Tab, 10 MG PO TIDP PRN for 7 Days, #30 TAB 0 Refills Prov:MUSA LANDIS MD 10/06/24 Hydrocodone-Acetaminophen (Hydrocodone Bitartrate/AC 10-325 mg) 1 Tab Tab, 1 TAB PO TIDP PRN for 6 Days, #20 TAB 0 Refills Prov:MUSA LANDIS MD 10/06/24 Reported Medications Nystatin (Mycostatin) 1 Applic Ap, TOP BID 09/30/24 Triamcinolone Acetonide (Kenalog) 1 Applic Ap, TOP BID 09/30/24 Lidocaine-Prilocaine (Agoneaze 2.5-2.5 %) 1 Kit Kit 09/30/24 Lidocaine (Lidocaine) 5 % Pad, 2 PATCH TOP Q12HR 09/30/24 Hydrocodone-Acetaminophen (Hydrocodone/Acetaminophen 5-325 mg) 1 Tab Tab, 1 TAB PO BID PRN for PAIN SCALE 7 THRU 10 09/30/24 Plan/Recommendation no further cv workup is indicated negative carotid, trops , pt has covid19 , please consult appropriate specialist if necessary Plan discussed with: Other (rn) RAMSEY BERNSTEIN Jan 13, 2025 09:13 DRE GUZMÁN MD Jan 13, 2025 16:20
[2025-01-13 10:21] LABS: COVID19 ANTIGEN SOFIA FIA POSITIVE (NEGATIVE)
[2025-01-13] MEDS ORDERED: KETOROLAC TROMETH 30 MG/ML 1ML VIAL IV PRN (11:30)
[2025-01-13 11:51] LABS: Chloride 106 mmol/L (98-107); Sodium 142 mmol/L (136-145)
[2025-01-13 11:52] LABS: Anion Gap 14 (5-15); Carbon Dioxide 22 mmol/L (20-31); Potassium 3.2 mmol/L (3.5-5.1)
[2025-01-13 11:53] LABS: Calcium 9.2 mg/dL (8.7-10.4)
[2025-01-13 11:57] LABS: BUN/Creatinine Ratio 15.8 (10.0-20.0); Blood Urea Nitrogen 12 mg/dL (9-23); Glucose 92 mg/dL (74-106)
[2025-01-13] MEDS: KETOROLAC TROMETH 30 MG/ML 1ML VIAL IV SCH (12:15)
[2025-01-13] MEDS: HYDROcodone-ACET 10/325MG TAB PO SCH (14:00)
[2025-01-13] MEDS: PREGABALIN 25 MG CAP PO SCH (14:00)
[2025-01-13 15:20] VITALS: BP 119/98; PULSE 97; RESP 18; TEMP 99.1; O2SAT 99
[2025-01-13 16:13] VITALS: BP 119/98; PULSE 97; RESP 18; TEMP 99.1; O2SAT 99
--- NOTE | 2025-01-13 16:40 | DVHSR ---
APPROVED REPORT EXAM: Two-dimensional and M-mode echocardiogram with Doppler and color Doppler. Blood Pressure: 99/63 mmHg INDICATION Syncope RISK FACTORS Obesity: Height: 5'2, Weight: 160 DIMENSIONS LVDd4.0 (3.8-5.7cm)LA (2D)4.1 (1.9-4.0cm)Aortic Root2.9 (2.0-3.7cm) LVDs2.7 (2.5-4.0cm)LA (MM) (1.9-4.0cm)Aortic Cusp Exc1.8 (1.5-2.0cm) EF (%) 60.0 (55-70%)Rt. Atrium3.3 (1.9-4.0cm)Asc. Aorta2.9 cm IVSd0.8 (0.7-1.1cm)RV (D)3.3 (1.8-2.4cm) PWd0.9 (0.7-1.1cm) Mitral Valve MitralMitral Stenosis E wave0.96m/sMV Mean GR.mmHg A wave0.94m/sMV Peak GR.mmHg E/A ratio1.02D MVAcm2 DECEL [id number] 1/2 Tim[place] Aortic Valve Aortic ValveAortic Stenosis V11.10m/[place] Mean GR.4mmHg V21.32m/[place] Peak GR.7mmHg LVOT Diameter1.8 (1.8-2.4cm)Doppler AVA2.12cm2 Pulmonic Valve V21.01m/s Tricuspid Valve TR Velocity2.07m/s [id number] Other Information Technically limited study due to pt sitting up Conclusion lvef 65% normal biv function normal atria trivial pericardial effusion noted
[2025-01-13 17:00] VITALS: BP 111/80; PULSE 90; RESP 17; TEMP 100; O2SAT 100
[2025-01-13] MEDS ORDERED: ACETAMINOPHEN 325 MG TAB PO SCH (18:00)
[2025-01-13] MEDS: BACLOFEN 10 MG TAB PO PRN (18:19)
--- NOTE | 2025-01-13 19:47 | DVH ---
CLINICAL HISTORY: Ovarian mass TECHNIQUE: Ultrasound examination of the female pelvis was performed transabdominal. Transvaginal ult rasound was performed to more optimally assess the endometrial cavity. COMPARISON: None FINDINGS: TRANSABDOMINAL IMAGING: The bladder is not well distended and therefore not well evaluated able. Endovaginal imaging was ther eafter performed for better depiction of the anatomy. ENDOVAGINAL IMAGING: The uterus measures 8.6 X 6.1 X 4.4 CM. The myometrial echotexture is homogenous. No focal myometria l abnormality is seen. The endometrial lining is normal in thickness, measuring 2 mm. The right ovary is not seen, likely obscured by overlying bowel gas. The left ovary measures 3.9 X 3.4 X 3.1 cm. There is a simple 2.8 cm doubtful varying follicular cyst . Normal color doppler flow and vascular waveforms. There is no free fluid. IMPRESSION: NO SIGNIFICANT SONOGRAPHIC ABNORMALITY OF THE VISUALIZED PELVIS. NONVISUALIZATION OF THE RIGHT OVARY.
[2025-01-13] MEDS ORDERED: PANTOPRAZOLE 40 MG/10 ML VIAL INJ IV SCH (20:00)
[2025-01-13 20:30] VITALS: PULSE 90; RESP 17; O2SAT 100
[2025-01-13 21:00] VITALS: BP 112/84; PULSE 92; RESP 18; TEMP 97.8; O2SAT 98
[2025-01-14] MEDS ORDERED: KETOROLAC TROMETH 30 MG/ML 1ML VIAL IV ONE (00:30)
--- NOTE | 2025-01-14 06:32 | DVHDSRES ---
Discharge Summary Date of Admission Resident Creating Document: KOURTNEY TESFAYE RESIDENT Jan 13, 2025 at 04:48 Date of Discharge: Jan 13, 2025 Labs/Diagnostic Data: Laboratory Results Test 01/13/25 20:44 01/13/25 09:24 01/13/25 05:59 01/13/25 02:30 Potassium Level 3.3 mmol/L (3.5-5.1) Influenza Type A Antigen Negative (Negative) Influenza Type B Antigen Negative (Negative) SARS-CoV-2 Antigen (Rapid) Positive (NEGATIVE) Sodium Level 142 mmol/L (136-145) Chloride Level 106 mmol/L (98-107) Carbon Dioxide Level 22 mmol/L (20-31) Anion Gap 14 (5-15) Blood Urea Nitrogen 12 mg/dL (9-23) Creatinine 0.76 mg/dL (0.550-1.02) Glomerular Filtration Rate Calc 105 mL/min (>90) BUN/Creatinine Ratio 15.8 (10.0-20.0) Serum Glucose 92 mg/dL (74-106) Calcium Level 9.2 mg/dL (8.7-10.4) Troponin I High Sensitivity < 3 ng/L (</=34) Thyroid Stimulating Hormone (TSH) 3.43 uIU/mL (0.55-4.78) Plasma/Serum Blood Alcohol < 3.0 mg/dL (<10) Urine Color Brown (Yellow) Urine Clarity Turbid (Clear) Urine pH 5.5 (5.0-9.0) Urine Specific Doyle 1.030 (1.001-1.035) Urine Protein 2+ (Negative) Urine Ketones 1+ (Negative) Urine Blood 3+ /uL (Negative) Urine Nitrite Negative (Negative) Urine Bilirubin Negative (Negative) Urine Urobilinogen Normal mg/dL (Negative) Urine Leukocyte Esterase 2+ /uL (Negative) Urine RBC 36 /hpf (0 - 4) Urine Microscopic WBC 56 /HPF (0-5) Urine Squamous Epithelial Cells Mod /hpf (<5) Urine Bacteria Few /hpf (None Seen) Urine Mucus Few (None Seen) Urine Glucose Normal mg/dL (Normal) Urine Test Negative (Negative) Urine Opiates Screen Neg (NEGATIVE) Urine Fentanyl Screen Neg (NEGATIVE) Urine Barbiturates Screen Neg (NEGATIVE) Urine Phencyclidine Screen Neg (NEGATIVE) Urine Amphetamines Screen Neg (NEGATIVE) Urine Benzodiazepines Screen Neg (NEGATIVE) Urine Cocaine Screen Neg (NEGATIVE) Urine Cannabinoids Screen Neg (NEGATIVE) Test 01/13/25 02:23 White Blood Count 6.0 10^3/uL (4.4-10.8) Red Blood Count 4.25 10^6/uL (4.0-5.20) Hemoglobin 11.5 g/dL (12.2-16.2) Hematocrit 34.5 % (36.0-46.0) Mean Corpuscular Volume 81.1 fL (80.0-100.0) Mean Corpuscular Hemoglobin 27.0 pg (28.0-32.0) Mean Corpuscular Hemoglobin Concent 33.3 g/dL (32.0-36.0) Red Cell Distribution Width 16.4 % (11.8-14.3) Platelet Count 322 10^3/uL (140-450) Mean Platelet Volume 8.2 fL (6.9-10.8) Neutrophils (%) (Auto) 87.5 % (37.0-80.0) Lymphocytes (%) (Auto) 6.7 % (10.0-50.0) Monocytes (%) (Auto) 5.1 % (0.0-12.0) Eosinophils (%) (Auto) 0.2 % (0.0-7.0) Basophils (%) (Auto) 0.5 % (0.0-2.0) Neutrophils # (Auto) 5.2 10 ^3/uL (1.6-8.6) Lymphocytes # (Auto) 0.4 10 ^3/uL (0.4-5.4) Monocytes # (Auto) 0.3 10 ^3/uL (0-1.3) Eosinophils # (Auto) 0 10 ^3/uL (0-0.8) Basophils # (Auto) 0 10 ^3/uL (0-0.2) Nucleated Red Blood Cells 0.0 % Magnesium Level 1.9 mg/dL (1.6-2.6) Total Bilirubin 0.5 mg/dL (0.2-1.0) Aspartate Amino Transferase (AST) 11 U/L (13-40) Alanine Aminotransferase (ALT) < 9 U/L (7-40) Alkaline Phosphatase 76 U/L (46-116) Total Protein 7.4 g/dL (5.7-8.2) Albumin 4.8 g/dL (3.2-4.8) Other Laboratory Tests 01/13/25 20:44 01/13/25 05:59 01/13/25 02:23 Brief Hx & Hospital Course: Tasha Rodriguez is a 34-year-old female past medical history of chronic back pain due to lumbar spinal stenosis, complained to the ER with chief complain of syncope twice yesterday. She reported losing consciousness at [facility] while waiting in the line, she gained consciousness and was feeling warm to touch and heart rate was high. She reported going back to home and losing consciousness while in the shower. She reported hitting head twice. Also complained of sore throat since 2 days, both her children are sick with similar symptoms. She has chronic numbness and tingling in her right leg, dizziness on standing up. She follows with Neurology specialist in [place]. She was admitted along the lines of syncope and was undergoing workup. During her stay, she was started on pain management and workup for syncope. She also complained of chronic back pain , takes [place] at home. She denied management with Tylenol, Toradol, [place], morphine during her stay. CT head revealed no acute pathology, CXR showed no acute cardiopulmonary disease, EKG reveals sinus tachycardia, echo revealed LVEF 65%. Her labs came out positive for COVID-19. The risk of leaving versus benefit of stay were explained are multiple occasions, she stated she wants to leave and understood the risk of leaving on multiple occasions, she signed the AMA paperwork and subsequently left. Diagnosis during stay: Syncope, ruling out cardiac causes Orthostatic syncope, possible Carotid artery stenosis, ruled out Hemorrhagic stroke/space-occupying [employer] lesion, ruled out Generalized seizure, ruled out clinically Trivial pericardial effusion, echo finding Acute COVID-19 Chronic pain syndrome Hypokalemia Normocytic, normochromic anemia, unspecified Iron-deficiency anemia, possible Syncope Cystitis, ruled out Influenza, ruled out Condition at Discharge: Undetermined Final Diagnosis/Problems List Syncope, ruling out cardiac causes Orthostatic syncope, possible Carotid artery stenosis, ruled out Hemorrhagic stroke/space-occupying [employer] lesion, ruled out Generalized seizure, ruled out clinically Trivial pericardial effusion, echo finding Acute COVID-19 Chronic pain syndrome Hypokalemia Normocytic, normochromic anemia, unspecified Iron-deficiency anemia, possible Syncope Cystitis, ruled out Influenza, ruled out Discharge Disposition: AMA Discharge Instruct/Medications Scheduled Calcium Polycarbophil (Fiber Tabs), 625 MG PO BID Docusate Sodium (Colace), 1 CAP PO BID Polyethylene Glycol 3350 (Gavilax), 17 GM PO DAILY Scheduled PRN Cyclobenzaprine HCl (Cyclobenzaprine Hydrochlo), 10 MG PO TIDP PRN Hydrocodone-Acetaminophen (Hydrocodone/Acetaminophen 5-325 mg), 1 TAB PO BID PRN for PAIN SCALE 7 THRU 10, (Reported) Hydrocodone-Acetaminophen (Hydrocodone Bitartrate/AC 10-325 mg), 1 TAB PO TIDP PRN Discontinued Medications Lidocaine (Lidocaine), 2 PATCH TOP Q12HR, (Reported) Lidocaine-Prilocaine (Agoneaze 2.5-2.5 %), (Reported) Nystatin (Mycostatin), TOP BID, (Reported) Triamcinolone Acetonide (Kenalog), TOP BID, (Reported) Discharge Statement: "Patient was advised to return to the ER or call 911 if any headaches, dizziness, shortness of breath, chest pain, abdominal pain, bleeding, fevers, or worsening of medical condition. Patient was counseled about treatment plan, medications, possible side effects, patientverbalized understanding. All questions were answered to the best of my ability. This discharge took greater then 30 minutes in planning, reviewing documentation, counseling the patient, and discussing with other team members." ASSESSMENT ASSESSMENT Assessment Date of Service: Jan 13, 2025 Billing Provider: TALAT SERNA MD Common Visit Codes: 42883-LIR/OBS DISCH DAY >30min KOURTNEY TESFAYE RESIDENT Jan 14, 2025 06:32 TALAT SERNA MD Jan 14, 2025 22:23
== END 2025-01-13 21:01 | disposition left against medical advice (07) | DRG 137 ==
LOC: ER 01:35 → OVERFLOW 04:48 → TELE-WESTW 14:50
PROVIDERS: ADMIT Student in an Organized Health Care Education/Training Program; ATTEND Student in an Organized Health Care Education/Training Program
DX: U07.1 COVID-19 (principal); I31.39 Other pericardial effusion (noninflammatory); I95.1 Orthostatic hypotension; E87.6 Hypokalemia; Z53.29 Procedure and treatment not carried out because of patient's decision for other reasons; G89.4 Chronic pain syndrome; D50.9 Iron deficiency anemia, unspecified; Z91.040 Latex allergy status; Z79.899 Other long term (current) drug therapy; Z98.84 Bariatric surgery status; Z98.891 History of uterine scar from previous surgery; Z83.3 Family history of diabetes mellitus; Z82.49 Family history of ischemic heart disease and other diseases of the circulatory system
CPT/HCPCS: 36415; 70450; 71045; 72125; 76856; 80048; 80053; 80307; 80320; 81001; 81025; 83735; 84132; 84443; 84484; 85025; 87086; 87426; 87804; 93005; 93306; 93886; 96365; 96375; G0378; J1885; J2405